=== PATIENT | male | born 1950 | race Caucasian/White ===

== ENCOUNTER → 2016-06-26 | Outpatient (CLI) | payer BC ==
[~2016-06-26] MED LIST: ACET-1256 PO; BND25X PO; GLUCTAB7 PO; VITACAP26 PO
== END | disposition home or self-care (01) ==
LOC: C.LAB 11:40
PROVIDERS: ATTEND Urology
DX: C61 Malignant neoplasm of prostate (principal)

== ENCOUNTER → 2016-09-23 | Outpatient (CLI) | payer BC | END | disposition home or self-care (01) | LOC: C.LAB 11:26 | PROVIDERS: ATTEND Urology | DX: C61 Malignant neoplasm of prostate (principal) ==

== ENCOUNTER → 2017-06-19 | Outpatient (CLI) | payer OTHER | END | disposition home or self-care (01) | LOC: C.PATHSPEC 17:27 | PROVIDERS: ATTEND Urology | DX: C61 Malignant neoplasm of prostate (principal) ==

== ENCOUNTER → 2017-12-25 | Outpatient (CLI) | payer OTHER | END | disposition home or self-care (01) | LOC: C.LAB 18:51 | PROVIDERS: ATTEND Urology | DX: C61 Malignant neoplasm of prostate (principal) ==

== ENCOUNTER 2022-03-29 08:23 | Observation (INO) ==
[2022-03-29] MEDS ORDERED: MoRPHine SULFATE 4 MG/ML 1 ML CARP\\VIAL IV STA ×2 (08:51→09:36)
[2022-03-29] MEDS ORDERED: SODIUM CHLORIDE 0.9% 1000ML 1,000 ML IV STA (08:51)
[2022-03-29] MEDS ORDERED: ONDANSETRON INJ 2 MG/ML 2 ML VIAL IV STA (08:51)
--- NOTE | 2022-03-29 08:56 | Emergency Department Note ---
History of Present Illness General Chief complaint: Abdominal Pain Stated complaint: PAIN IN UPPER MID SECTION BY RIBS Time Seen by Provider: 03/29/22 08:47 History of Present Illness Maximum Pain Intensity: 10 71-year-old male presents to the ED with a chief complaint of pain in the right upper quadrant. He reports it as feeling like a gallbladder attack. He had a sudden onset of his symptoms about an hour prior to arrival. Describes it as sharp pain. Little nausea. Last normal bowel movement was yesterday morning. Denies any vomiting. No fevers. He had a cholecystectomy performed [address] Naidu. Because he was unable to urinate after the surgery, Upton catheter was placed Home Medications Medication Instructions Recorded Confirmed Type antiarthritic combination no.2 900 900 mg PO DAILY 01/05/19 03/22/22 History mg tablet (glucosamine-chondroitin) ascorbic acid (vitamin C) 500 mg 500 mg PO DAILY 01/05/19 03/22/22 History capsule diphenhydramine HCl 25 mg capsule 25 mg PO Q8H PRN Allergy Symptoms 01/05/19 03/22/22 History (Allergy (diphenhydramine)) ibuprofen 200 mg tablet 200 mg PO DIRECTED PRN Pain 03/22/22 03/22/22 History Allergies Allergy/AdvReac Type Severity Reaction Status Date / Time cat dander Allergy Mild watery eyes Verified 03/22/22 00:40 dog dander Allergy Mild watery eyes Verified 03/22/22 00:40 pollen extracts Allergy Unknown ENVIRONMENTAL, Verified 03/22/22 00:40 watery eyes procaine Allergy Unknown FATHER HAD Verified 03/22/22 00:40 ANAPHYLAXIS FROM NOVOCAINE epinephrine AdvReac Mild Shakes Verified 03/22/22 00:40 when given at the dentist ANESTHETIC AdvReac Severe URINARY Uncoded 03/22/22 00:40 RETENTION Past Med/Surg History Medical History Dysfunction of right eustachian tube H/O bronchitis History of asthma as a child>had an inhaler Kidney stone current>not causing problem Prostate cancer currently being monitored Sensorineural hearing loss (SNHL) of left ear with unrestricted hearing of right ear Surgical History H/O colonoscopy H/O rotator cuff surgery RT History of anesthesia reaction urinary retention>required [place] catheter at discharge History of hernia repair inguinal History of tooth extraction Family History Mother Hypertension Stroke Other No family history of adverse response to anesthesia No family history of bleeding disorder Social History Smoking Status: Never smoker Second Hand Exposure: Yes ( A CHILD); Hx Alcohol Use: Yes Alcohol type: hard liquor Alcohol Intake Frequency: 4 or More x per/Week Hx Substance Use: No Preferred Language: Spanish 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 Beliefs That Will Affect Care: None marital status: Current Living Situation: Spouse current occupational status: retired How many Children do You have: 3 Feels Safe at Home: Yes during the past year weight has: remained stable Assistive Devices: Glasses Review of Systems A total of 10 systems reviewed and were otherwise negative Physical Exam Vital Signs Vital Signs - 24 hr 03/29/22 08:28 03/29/22 08:43 03/29/22 09:11 Temperature 36.3 C L Temperature Source Temporal Artery Scan Pulse Rate 61 49 L 52 L Pulse Rate from SpO2 Sensor Pulse Rhythm Regular Regular Respiratory Rate 16 23 Respiratory Effort / Characteristics Non-Labored Respiratory Depth Normal Blood Pressure 158/72 H Blood Pressure Mean 100 Pulse Oximetry 99 98 100 Oxygen Delivery Method Room Air Room Air Room Air Sepsis Recent Fever Within 48 Hours No Sepsis New/Unexplained Change in Mental Status No Sepsis Action Taken by Nursing No Action Required 03/29/22 08:43 03/29/22 08:43 03/29/22 09:00 Temperature Temperature Source Pulse Rate 58 L 53 L Pulse Rate from SpO2 Sensor 58 L 53 L Pulse Rhythm Respiratory Rate 17 19 Respiratory Effort / Characteristics Respiratory Depth Blood Pressure 192/106 H Blood Pressure Mean 134 Pulse Oximetry 99 99 Oxygen Delivery Method Sepsis Recent Fever Within 48 Hours Sepsis New/Unexplained Change in Mental Status Sepsis Action Taken by Nursing 03/29/22 09:01 03/29/22 09:01 03/29/22 09:30 Temperature Temperature Source Pulse Rate 52 L Pulse Rate from SpO2 Sensor 53 L 48 L Pulse Rhythm Respiratory Rate 23 14 Respiratory Effort / Characteristics Respiratory Depth Blood Pressure 166/72 H 164/93 H Blood Pressure Mean 103 116 Pulse Oximetry 100 98 Oxygen Delivery Method Sepsis Recent Fever Within 48 Hours Sepsis New/Unexplained Change in Mental Status Sepsis Action Taken by Nursing CONSTITUTIONAL/VITAL SIGNS: Reviewed / noted above. GENERAL: Non-toxic in appearance. INTEGUMENTARY: Warm, dry, and [place]. HEAD: Normocephalic. EYES: without scleral icterus or trauma. ENT/OROPHARYNX: clear and moist. LYMPHADENOPATHY/NECK: Is supple without lymphadenopathy or meningismus. RESPIRATORY: Clear to auscultation bilaterally. No increased work of breathing. CARDIOVASCULAR: Regular rate and rhythm. GI/ABDOMEN: Soft and tender in the upper abdomen right greater than left. No organomegaly or pulsatile mass. EXTREMITIES: Warm and well perfused. BACK: No CVA tenderness. NEUROLOGICAL: Intact without focal deficits. PSYCHIATRIC: normal affect. MUSCULOSKELETAL: Normally developed with good muscle tone. TRIAGE NURSING DOCUMENTATION REVIEWED. Course Administered Medications Discontinued Medications Sodium Chloride (Nss 1000ml) 1,000 mls @ 999 mls/hr IV .Q1H1M STA Stop: 03/29/22 09:51 Last Admin: 03/29/22 08:57 Dose: 999 mls/hr Documented By: ED Morphine Sulfate (Morphine Sulfate 4 Mg/Ml 1 Ml Carp\Vial) 4 mg IV NOW STA Stop: 03/29/22 08:52 Last Admin: 03/29/22 08:58 Dose: 4 mg Documented By: ED Morphine Sulfate (Morphine Sulfate 4 Mg/Ml 1 Ml Carp\Vial) 4 mg IV NOW STA Stop: 03/29/22 09:37 Last Admin: 03/29/22 09:41 Dose: 4 mg Documented By: ED Ondansetron HCl (Ondansetron Inj 2 Mg/Ml 2 Ml Vial) 4 mg IV NOW STA Stop: 03/29/22 08:52 Last Admin: 03/29/22 08:58 Dose: 4 mg Documented By: ED Medical Decision Making Differential Diagnosis Differential considered: pancreatitis, hepatitis, acute cholecystitis, AAA, UTI, pyelonephritis, kidney stones, appendicitis, diverticulitis, shingles, bowel obstruction, mesenteric ischemia, intussusception,hernia Medical Records Attestation: I reviewed the patient's medical records. Home Medications Current Medication List: was personally reviewed by me Laboratory Data Attestation: I reviewed the patient's lab results. Result diagrams: 03/29/22 08:43 03/29/22 08:43 Lab Results 03/29/22 03/29/2203/29/22 Range/Units 08:43 08:43 09:37 WBC 6.43 (4.8-10.8) K/ul RBC 5.36 (4.63-6.08) M/uL Hgb 17.0 (14.0-18.0) g/dl Hct 48.2 (40.1-51.0) % MCV 89.9 (80.0-100.0) fL MCH 31.7 (25.0-34.0) pg MCHC 35.3 (32.0-36.0) g/dL RDW Std Deviation 38.4 (36.4-46.3) fL RDW Coeff of Arpan 11.8 (11.5-14.5) % Plt Count 239 (130-400) K/uL MPV 9.9 (9.4-12.4) fL Immature Gran % (Auto) 1.7 % Neut % (Auto) 57.0 % Lymph % (Auto) 28.6 % [place] % (Auto) 9.6 % Eos % (Auto) 2.5 % Baso % (Auto) 0.6 % Neut # (Auto) 3.66 (1.4-6.5) K/uL Lymph # (Auto) 1.84 (1.2-3.4) K/uL [place] # (Auto) 0.62 (0.24-0.82) K/uL Eos # (Auto) 0.16 (0-0.50) K/uL Baso # (Auto) 0.04 (0-0.2) K/uL Immature Gran # (Auto) 0.11 H (0.00-0.02) K/uL Sodium 139 (136-145) mmol/L Potassium 3.5 (3.5-5.1) mmol/L Chloride 103 (98-107) mmol/L Carbon Dioxide 25 (21-32) mmol/L Anion Gap 11 (3-11) BUN 25 H (6-23) mg/dl Creatinine 0.99 (0.6-1.4) mg/dl Est Cr Clr Drug Dosing Not Reportable Est GFR ( Amer) 89.1 ml/min Est GFR (Non-Af Amer) 76.8 ml/min BUN/Creatinine Ratio 25.3 H (10-20) Glucose 126 H (70-99(Fasting)) mg/dl Calcium 9.5 (8.5-10.1) mg/dl Total Bilirubin 0.9 (0.2-1.0) mg/dl AST 21 (13-39) U/L ALT 31 (7-52) U/L Alkaline Phosphatase 108 H (34-104) U/L Total Protein 7.2 (6.0-8.3) gm/dl Albumin 4.4 (3.4-5.0) gm/dl Globulin 2.8 (2.5-4.0) gm/dl Albumin/Globulin Ratio 1.6 (0.9-2) Lipase 71 (11-82) U/L Urine Color Yellow Urine Appearance Cloudy A (Clear) Urine pH 8.0 H (4.5-7.5) Ur Specific [place] 1.025 (1.000-1.030) Urine Protein 1+ H (Negative) Urine Glucose (UA) Negative (Negative) Urine Ketones Trace H (Negative) Urine Blood 2+ H (Negative) Urine Nitrite Negative (Negative) Urine Bilirubin Negative (Negative) Urine Urobilinogen Negative (Negative) Ur Leukocyte Esterase 1+ H (Negative) Urine WBC (Auto) 5-10 H (0-5) /hpf Urine RBC (Auto) 5-10 H (0-4) /hpf U Hyaline Cast (Auto) 10-30 H (0-5) /lpf U Epithel Cells (Auto) >30 H (0-5) /lpf Urine Bacteria (Auto) 1+ H (Negative) Ur Renal Epithelial Cell Not Reportable Urine Crystals Not Reportable Imaging Data Radiologist's Impression: Abdomen/Pelvis CT 03/29/22 08:51 CT SCAN OF THE ABDOMEN AND PELVIS WITHOUT IV CONTRAST CLINICAL HISTORY: Right upper quadrant abdominal pain. Recent cholecystectomy. COMPARISON STUDY: Abdominal CT dated 12/01/2018. Abdominal ultrasound dated 12/26/2021. TECHNIQUE: CT scan of the abdomen and pelvis is performed from the lung bases to the proximal femora. Images are reviewed in the axial, sagittal, and coronal planes. IV contrast was not administered for this examination. Note that the examination was performed in significantly suboptimal fashion without oral and IV contrast. A dose lowering technique was utilized adhering to the principles of ALARA. CT DOSE: 333.39 mGy.cm FINDINGS: Lung bases: The heart is mildly enlarged and without pericardial effusion. There are coronary artery calcifications. The lung bases are clear noting bibasilar atelectasis. A small hiatal hernia is noted. Liver: The unenhanced liver is normal in size, contour, and attenuation. There is no intrahepatic biliary ductal dilatation. Gallbladder: The gallbladder is surgically absent noting clips in the gallbladder fossa. There is mild soft tissue infiltration within the gallbladder fossa, likely representing expected postoperative change. No fluid collection is seen on this unenhanced examination. Spleen: Normal in size and attenuation. Pancreas: Unremarkable. Adrenal glands: Unremarkable. Kidneys: The unenhanced kidneys are normal in size and without hydronephrosis. There is a 4 mm nonobstructing calculus in the left lower pole. No right renal calculi are identified and no ureteral stone is seen. There is no evidence of c ontour deforming renal mass lesion. Abdominal vasculature: The abdominal aorta is normal in course and caliber noting scattered foci of atherosclerotic calcification. Bowel: There is no bowel obstruction. Mild to moderate fecal retention is seen throughout the colon. The appendix is well-visualized and normal. Peritoneum: There is no intraperitoneal free air or abdominal ascites. Periumbilical soft tissue infiltration and dermal thickening is likely related to a recent laparoscopy port. Lymphadenopathy: None. Pelvic viscera: The prostate gland is enlarged and heterogeneous noting median lobe hypertrophy. The bladder is partially decompressed around a Upton catheter. The bladder wall appears thickened and trabeculated indicating chronic outlet obstruction. A distal left ureterocele versus bladder diverticulum is unchanged. Skeletal structures: The skeletal structures are osteopenic. There is mild lumbosacral spondylosis. No lytic or blastic lesions are seen. IMPRESSION: 1. Suboptimal examination without oral and IV contrast. 2. Status post cholecystectomy. 3. There is mild infiltration within the gallbladder fossa, likely representing expected postoperative change. No organized fluid collection is seen. 3. Prostatomegaly with evidence of chronic bladder outlet obstruction. 4. Left-sided nephrolithiasis. 5. Additional findings as above. ACT 112: Negative or not required by law. Electronically signed by: Jay Mcgee M.D. 03/29/2022 9:28 AM Chest X-Ray 03/29/22 09:53 SINGLE VIEW CHEST CLINICAL HISTORY: Right upper quadrant abdominal pain. FINDINGS: An AP, portable, upright chest radiograph is compared to study dated 02/11/2013. Correlation is made with abdominal CT performed the same day 2021. The heart is mildly enlarged. There is pulmonary vascular congestion. There is elevation of the right hemidiaphragm and bibasilar atelectasis. No airspace consolidation typical for pneumonia or large pleural effusion is identified. No pneumothorax is seen. The skeletal structures are osteopenic. The bony thorax is grossly intact. Cholecystectomy clips are noted in the right upper quadrant. IMPRESSION: 1. Cardiomegaly with mild pulmonary vascular congestion. 2. No airspace consolidation typical for pneumonia or large pleural effusion is identified ACT 112: Negative or not required by law. Electronically signed by: Jay Mcgee M.D. 03/29/2022 10:36 AM ECG Data Attestation: I personally reviewed and interpreted this ECG as follows: Additional Comments: Twelve-lead EKG: Per my interpretation shows a sinus rhythm at a rate of 58. No ST elevation. No PVCs. Normal QTC. MDM Narrative 71-year-old male presents with right upper quadrant abdominal pain as detailed above. Status postcholecystectomy 8 days ago. His pain was treated with morphine IV which seems to help. He was also given IV fluids and IV Zofran. A CT scan of the abdomen pelvis did not show a clear cause for her symptoms and a chest x-ray was negative for acute disease. His blood work was also relatively benign and unremarkable as was the urine. Concern for retained stone. Attempted to order a HIDA scan but there is no isotope in stock. Surgery service is seeing the patient for inpatient evaluation and MRCP. Impression & Plan Abdominal pain, acute, right upper quadrant Discharge Plan Visit Data Chief Complaint: Abdominal Pain Stated Complaint: PAIN IN UPPER MID SECTION BY RIBS ED Provider: Selvin Loomis Discharge Problem: Abdominal pain, acute, right upper quadrant Patient Disposition: Being Evaluated by Surgeon Forms Stand Alone Forms: [facility] [employer] Prescriptions Prescriptions: No Action diphenhydramine HCl [Allergy (diphenhydramine)] 25 mg capsule 25 mg PO Q8H PRN (Reason: Allergy Symptoms) ascorbic acid (vitamin C) 500 mg capsule 500 mg PO DAILY glucosamine-chondroitin 900 mg tablet 900 mg PO DAILY ibuprofen 200 mg Tablet 200 mg PO DIRECTED PRN (Reason: Pain) Referrals Referrals: Barber Pena DO [Primary Care Provider] -
[2022-03-29 09:05] LABS: Basophils # (auto) 0.04 K/uL (0-0.2); Basophils % (auto) 0.6 %; Eosinophils # (auto) 0.16 K/uL (0-0.50); Eosinophils % (auto) 2.5 %; Hematocrit (blood only) 48.2 % (40.1-51.0); Immature Granulocytes # (auto) 0.11 K/uL (0.00-0.02); Immature Granulocytes % (auto) 1.7 %; Lymphocytes # (auto) 1.84 K/uL (1.2-3.4); Lymphocytes % (auto) 28.6 %; Mean Corpuscular Hemoglobin 31.7 pg (25.0-34.0); Mean Corpuscular Hgb Conc 35.3 g/dL (32.0-36.0); Mean Corpuscular Volume 89.9 fL (80.0-100.0); Mean Platelet Volume 9.9 fL (9.4-12.4); Monocytes # (auto) 0.62 K/uL (0.24-0.82); Monocytes % (auto) 9.6 %; Neutrophils # (auto) 3.66 K/uL (1.4-6.5); Platelet Count 239 K/uL (130-400); RDW Coefficient of Variation 11.8 % (11.5-14.5); RDW Standard Deviation 38.4 fL (36.4-46.3); Red Blood Count 5.36 M/uL (4.63-6.08); White Blood Count 6.43 K/ul (4.8-10.8)
[2022-03-29 09:26] LABS: Alanine Aminotransferase 31 U/L (7-52); Albumin Globulin Ratio 1.6 (0.9-2); Albumin Level 4.4 gm/dl (3.4-5.0); Alkaline Phosphatase 108 U/L (34-104); Anion Gap 11 (3-11); Aspartate Aminotransferase 21 U/L (13-39); BUN Creatinine Ratio 25.3 (10-20); Bilirubin,Total 0.9 mg/dl (0.2-1.0); Blood Urea Nitrogen 25 mg/dl (6-23); Calcium 9.5 mg/dl (8.5-10.1); Carbon Dioxide 25 mmol/L (21-32); Chloride 103 mmol/L (98-107); Est GFR (African American) 89.1 ml/min; Est GFR (Non-African American) 76.8 ml/min; Globulin 2.8 gm/dl (2.5-4.0); Glucose 126 mg/dl (70-99(Fasting)); Lipase 71 U/L (11-82); Potassium 3.5 mmol/L (3.5-5.1); Sodium 139 mmol/L (136-145); Total Protein 7.2 gm/dl (6.0-8.3)
--- NOTE | 2022-03-29 09:29 | CT Scan Report ---
CT SCAN OF THE ABDOMEN AND PELVIS WITHOUT IV CONTRAST CLINICAL HISTORY: Right upper quadrant abdominal pain. Recent cholecystectomy. COMPARISON STUDY: Abdominal CT dated 12/01/2018. Abdominal ultrasound dated 12/26/2021. TECHNIQUE: CT scan of the abdomen and pelvis is performed from the lung bases to the proximal femora. Images are reviewed in the axial, sagittal, and coronal planes. IV contrast was not administered for this examination. Note that the examination was performed in significantly suboptimal fashion withou t oral and IV contrast. A dose lowering technique was utilized adhering to the principles of ALARA. CT DOSE: 333.39 mGy.cm FINDINGS: Lung bases: The heart is mildly enlarged and without pericardial effusion. There are coronary artery calcifications. The lung bases are clear noting bibasilar atelectasis. A small hiatal hernia is noted . Liver: The unenhanced liver is normal in size, contour, and attenuation. There is no intrahepatic lance iary ductal dilatation. Gallbladder: The gallbladder is surgically absent noting clips in the gallbladder fossa. There is mil d soft tissue infiltration within the gallbladder fossa, likely representing expected postoperative c hange. No fluid collection is seen on this unenhanced examination. Spleen: Normal in size and attenuation. Pancreas: Unremarkable. Adrenal glands: Unremarkable. Kidneys: The unenhanced kidneys are normal in size and without hydronephrosis. There is a 4 mm nonobs tructing calculus in the left lower pole. No right renal calculi are identified and no ureteral stone is seen. There is no evidence of contour deforming renal mass lesion. Abdominal vasculature: The abdominal aorta is normal in course and caliber noting scattered foci of a therosclerotic calcification. Bowel: There is no bowel obstruction. Mild to moderate fecal retention is seen throughout the colon. The appendix is well-visualized and normal. Peritoneum: There is no intraperitoneal free air or abdominal ascites. Periumbilical soft tissue infi ltration and dermal thickening is likely related to a recent laparoscopy port. Lymphadenopathy: None. Pelvic viscera: The prostate gland is enlarged and heterogeneous noting median lobe hypertrophy. The bladder is partially decompressed around a Martin catheter. The bladder wall appears thickened and tra beculated indicating chronic outlet obstruction. A distal left ureterocele versus bladder diverticulu m is unchanged. Skeletal structures: The skeletal structures are osteopenic. There is mild lumbosacral spondylosis. N o lytic or blastic lesions are seen. IMPRESSION: 1. Suboptimal examination without oral and IV contrast. 2. Status post cholecystectomy. 3. There is mild infiltration within the gallbladder fossa, likely representing expected postoperativ e change. No organized fluid collection is seen. 3. Prostatomegaly with evidence of chronic bladder outlet obstruction. 4. Left-sided nephrolithiasis. 5. Additional findings as above. ACT 112: Negative or not required by law. Electronically signed by: Jay Mcgee M.D. 03/29/2022 9:28 AM
[2022-03-29 10:01] LABS: Appearance Urine Cloudy (Clear); Bilirubin Urine Negative (Negative); Blood Urine 2+ (Negative); Color Urine Yellow; Epithelial Cell Urine Auto >30 /lpf (0-5); Glucose Urine UA Negative (Negative); Ketones Urine Trace (Negative); Leukocyte Esterase Urine 1+ (Negative); Nitrite Urine Negative (Negative); Specific Gravity Urine 1.025 (1.000-1.030); Urobilinogen Urine Negative (Negative)
[2022-03-29 10:06] LABS: Protein Urine 1+ (Negative)
[2022-03-29 10:14] LABS: Bacteria Urine Automated 1+ (Negative)
--- NOTE | 2022-03-29 10:37 | XRay Report ---
SINGLE VIEW CHEST CLINICAL HISTORY: Right upper quadrant abdominal pain. FINDINGS: An AP, portable, upright chest radiograph is compared to study dated 02/11/2013. Correlation is made with abdominal CT performed the same day 03/29/2022. The heart is mildly enlarged. There is pulmonary vascular congestion. There is elevation of the right hemidiaphragm and bibasilar atelectasi s. No airspace consolidation typical for pneumonia or large pleural effusion is identified. No pneumo thorax is seen. The skeletal structures are osteopenic. The bony thorax is grossly intact. Cholecyste ctomy clips are noted in the right upper quadrant. IMPRESSION: 1. Cardiomegaly with mild pulmonary vascular congestion. 2. No airspace consolidation typical for pneumonia or large pleural effusion is identified ACT 112: Negative or not required by law. Electronically signed by: Jay Mcgee M.D. 03/29/2022 10:36 AM
--- NOTE | 2022-03-29 12:46 | History & Physical Report ---
Date of Service March 29, 2022 Assessment & Plan (1) Abdominal pain, acute, right upper quadrant: Plan: This is a 71yM with a PMH of prostate ca who presents to the [facility] ED on 03/29/22 with acute onset abdominal pain.He is recently s/p elective lap kirti on 03/21/[address] Naidu. This AM he developed acute onset upper abdominal pain he states was off the charts and similar to previous gallbladder attacks. In the ER he underwent a CT a/p that revealed expected postoperative change in the gallbladder fossa without any organized fluid collection. Labs show normal WBC 6.4, Tb: 0.9, AST: 21, ALT: 31, AlkP: 108. Patient is afebrile and HR's 50s, and is hypertensive. On exam his abdomen is soft with discomfort to palpation in the RUQ. He also reports ongoing nausea. Will admit the patient for pain control and monitoring. Recommended a HIDA for further evaluation but we are out of isotope until next week. Therefore we will order an MRCP which sounds like may be performed this evening. Will keep NPO with sips/chils, anti-emetics, and pain control. History of Present Illness Primary Care Provider: Barber Pena DO This is a 71yM with a PMH of prostate ca who presents to the [facility] ED on 03/29/22 with acute onset abdominal pain. Of significance the patient recently underwent an elective lap kirti on 03/21/[address] Naidu. He had been doing well since post op, but did return to the OR for urinary retention and upton catheter was placed in the ER on POD#0 and was otherwise suppose to upton up with Urology today for a void trial. Patient states his pain felt similar to his previous gallbladder attacks. The pain came on acutely this AM and was associated with nausea. Due to the severity of the pain, mostly located in the RUQ he came into the ER for further evaluation. In the ER he underwent a CT a/p that revealed expected postoperative change in the gallbladder fossa without any organized fluid collection. The patient denies any fevers/chills, vomiting, or recent change in bowel habits. Allergies Allergy/AdvReac Type Severity Reaction Status Date / Time cat dander Allergy Mild watery eyes Verified 03/22/22 00:40 dog dander Allergy Mild watery eyes Verified 03/22/22 00:40 pollen extracts Allergy Unknown ENVIRONMENTAL, Verified 03/22/22 00:40 watery eyes procaine Allergy Unknown FATHER HAD Verified 03/22/22 00:40 ANAPHYLAXIS FROM NOVOCAINE epinephrine AdvReac Mild Shakes Verified 03/22/22 00:40 when given at the dentist ANESTHETIC AdvReac Severe URINARY Uncoded 03/22/22 00:40 RETENTION Home Medications Medication Instructions Recorded Confirmed Type antiarthritic combination no.2 900 900 mg PO QAM 01/05/19 03/29/22 History mg tablet (glucosamine-chondroitin) ascorbic acid (vitamin C) 500 mg 500 mg PO BID 01/05/19 03/29/22 History capsule diphenhydramine HCl 25 mg capsule 25 mg PO PRN Allergy Symptoms 01/05/19 03/22/22 History (Allergy (diphenhydramine)) ibuprofen 200 mg tablet 200 mg PO DAILY PRN Pain 03/22/22 03/29/22 History tamsulosin 0.4 mg capsule (Flomax) 0.4 mg PO QPM RETENTION 03/29/22 03/29/22 History Past Med/Surg History Medical History Dysfunction of right eustachian tube H/O bronchitis History of asthma as a child>had an inhaler Kidney stone current>not causing problem Prostate cancer currently being monitored Sensorineural hearing loss (SNHL) of left ear with unrestricted hearing of right ear Surgical History H/O colonoscopy H/O rotator cuff surgery RT History of anesthesia reaction urinary retention>required upton catheter at discharge History of hernia repair inguinal History of tooth extraction Family History Mother Hypertension Stroke Other No family history of adverse response to anesthesia No family history of bleeding disorder Social History Smoking Status: Never smoker Second Hand Exposure: Yes ( A CHILD); Hx Alcohol Use: Yes Alcohol type: hard liquor Alcohol Intake Frequency: 4 or More x per/Week Hx Substance Use: No Preferred Language: Upper 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 Beliefs That Will Affect Care: None marital status: Current Living Situation: Spouse current occupational status: retired How many Children do You have: 3 Feels Safe at Home: Yes Safety Concerns: Feels Safe At This Time during the past year weight has: remained stable Assistive Devices: Glasses Review of Systems Constitutional: no fever and no chills Respiratory: no dyspnea Gastrointestinal: + abdominal pain (RUQ, across upper abdomen, into the R shoulder) and + nausea; no vomiting Physical Exam Physical Exam: awake/alert, no acute distress Respiratory: normal respiratory effort Gastrointestinal (Abdomen): Inspection/Auscultation: + abdominal surgical incision (c/d/i, some ecchymosis in lower abdomen); abdomen not distended Percussion/Palpation: + abdomen tender (ttp in the RUQ) and abdomen soft Results & Data Results & Data ([facility]) Vital Signs (Past 12 Hours) Vital Signs Temp Pulse Resp BP Pulse Ox O2 Del Method 03/29/22 09:30 14 164/93 H 98 03/29/22 09:01 52 L 23 100 03/29/22 09:01 166/72 H 03/29/22 09:00 53 L 19 99 03/29/22 08:43 58 L 17 99 03/29/22 08:43 192/106 H 03/29/22 09:11 52 L 23 100 Room Air 03/29/22 08:43 49 L 98 Room Air 03/29/22 08:28 36.3 C L 61 16 158/72 H 99 Room Air Diagnostic Findings CT SCAN OF THE ABDOMEN AND PELVIS WITHOUT IV CONTRAST CLINICAL HISTORY: Right upper quadrant abdominal pain. Recent cholecystectomy. COMPARISON STUDY: Abdominal CT dated 12/01/2018. Abdominal ultrasound dated 12/26/2021. TECHNIQUE: CT scan of the abdomen and pelvis is performed from the lung bases to the proximal femora. Images are reviewed in the axial, sagittal, and coronal planes. IV contrast was not administered for this examination. Note that the examination was performed in significantly suboptimal fashion without oral and IV contrast. A dose lowering technique was utilized adhering to the principles of ALARA. CT DOSE: 333.39 mGy.cm FINDINGS: Lung bases: The heart is mildly enlarged and without pericardial effusion. There are coronary artery calcifications. The lung bases are clear noting bibasilar atelectasis. A small hiatal hernia is noted. Liver: The unenhanced liver is normal in size, contour, and attenuation. There is no intrahepatic biliary ductal dilatation. Gallbladder: The gallbladder is surgically absent noting clips in the gallbladder fossa. There is mild soft tissue infiltration within the gallbladder fossa, likely representing expected postoperative change. No fluid collection is seen on this unenhanced examination. Spleen: Normal in size and attenuation. Pancreas: Unremarkable. Adrenal glands: Unremarkable. Kidneys: The unenhanced kidneys are normal in size and without hydronephrosis. There is a 4 mm nonobstructing calculus in the left lower pole. No right renal calculi are identified and no ureteral stone is seen. There is no evidence of contour deforming renal mass lesion. Abdominal vasculature: The abdominal aorta is normal in course and caliber noting scattered foci of atherosclerotic calcification. Bowel: There is no bowel obstruction. Mild to moderate fecal retention is seen throughout the colon. The appendix is well-visualized and normal. Peritoneum: There is no intraperitoneal free air or abdominal ascites. Periu mbilical soft tissue infiltration and dermal thickening is likely related to a recent laparoscopy port. Lymphadenopathy: None. Pelvic viscera: The prostate gland is enlarged and heterogeneous noting median lobe hypertrophy. The bladder is partially decompressed around a Upton catheter. The bladder wall appears thickened and trabeculated indicating chronic outlet obstruction. A distal left ureterocele versus bladder diverticulum is unchanged. Skeletal structures: The skeletal structures are osteopenic. There is mild lumbosacral spondylosis. No lytic or blastic lesions are seen. IMPRESSION: 1. Suboptimal examination without oral and IV contrast. 2. Status post cholecystectomy. 3. There is mild infiltration within the gallbladder fossa, likely representing expected postoperative change. No organized fluid collection is seen. 3. Prostatomegaly with evidence of chronic bladder outlet obstruction. 4. Left-sided nephrolithiasis. 5. Additional findings as above ACT 112: Negative or not required by law. Electronically signed by: Jay Mcgee M.D. 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 days postop laparoscopic cholecystectomy patient was recovering well without any issue last evening acute onset of pain right upper quadrant going to the back and right shoulder with associated nausea At this time with the patient's supine position and the knees flexed does have some guarding her right upper quadrant the rest of the abdomen is negative Possible etiologies of the acute onset of pain primarily would be a bile leak had a CT scan without any IV contrast did not definitively see any leak there was some changes in the gallbladder fossa we wanted to obtain a HIDA scan but apparently this not possible at this time since no availability of radioisotope We want to get an MRCP and apparently at this time the machine is not working Discussed with the patient the possible etiology of the acute onset of pain and primary bile leak must be ruled out All question answered 20:30 PM MRCP was recently completed I spoke with radiologist Dr. Hurtado and is positive for biliary leak I discussed the situation with the patient still has moderate amount of discomfort but stabilized he would like to have something to drink Given him the results of the MRCP I told him we need recommendations to have safety lead see him tomorrow ERCP I spoke with Dr. Shepherd this evening and he will be in touch with [facility] gastroenterology with be available to perform the ERCP Will start on full liquids tonight of choice at his request keep him n.p.o. after midnight PG Care Time/CCT Total # of Minutes Spent Total Time Spent with Patient: Total time spent is greater than 50% in coordination of care (as documented) at patient's floor/unit and/or counseling patient: Coding Level of Care Code None Diagnoses Abdominal pain, acute, right upper quadrant R10.11
[2022-03-29] MEDS ORDERED: ACETAMINOPHEN 325 MG TAB PO PRN (13:31)
[2022-03-29] MEDS ORDERED: MoRPHine SULFATE 2 MG/ML CARP IV PRN (13:31)
[2022-03-29] MEDS ORDERED: oxyCODONE HCL IR 5 MG TAB (IMMEDIATE RELEASE) PO PRN (13:31)
[2022-03-29] MEDS: SODIUM CHLORIDE 0.9% 1000ML 1,000 ML IV SCH ×2 (13:41→23:48)
[2022-03-29] MEDS: MoRPHine SULFATE 4 MG/ML 1 ML CARP\\VIAL IV PRN ×3 (13:42→23:46)
--- NOTE | 2022-03-29 15:31 | Electrocardiogram Report ---
Test Reason : Blood Pressure : / mmHG Vent. Rate : 058 BPM Atrial Rate : 058 BPM P-R Int : 176 ms QRS Dur : 090 ms QT Int : 430 ms P-R-T Axes : 064 075 049 degrees QTc Int : 422 ms Sinus bradycardia with Premature atrial complexes Otherwise normal ECG When compared with ECG of 13-MAR-2022 14:04, Premature atrial complexes are now Present Confirmed by Mikey Whaley ([id number]) on 03/29/2022 3:31:32 PM Referred By: REFERRED SELF Confirmed By:Mikey Whaley
[2022-03-29] MEDS ORDERED: hydrALAZINE HCL 20 MG/ML VIAL IV STA (17:36)
--- NOTE | 2022-03-29 20:07 | Magnetic Resonance Report ---
MR MRCP CLINICAL HISTORY: RUQ pain, lap kirti 8 days ago TECHNIQUE: Multiplanar multisequence MR images of the abdomen were obtained, as per MRCP protocol. . COMPARISON: Comparison is made to CT abdomen pelvis 03/29/2022 FINDINGS: Lower chest: Bibasilar atelectasis versus scarring is seen. Liver: Unremarkable. No focal lesions are seen. Gallbladder and biliary tree: Patient is status post cholecystectomy. Intra or extrahepatic bile duct s are normal in appearance. No focal irregularity is seen. Pancreas: Unremarkable, no focal lesions. Spleen: Unremarkable. Adrenals: Unremarkable. Kidneys and ureters: Perinephric stranding is noted bilaterally. Bowel: Unremarkable. Lymph nodes Retroperitoneal: Unremarkable. Mesenteric: Unremarkable. Peritoneum: There is free fluid most prominently in the right upper quadrant surrounding the liver. N o focal fluid collections are seen. Vessels: Unremarkable. Abdominal wall: Unremarkable. Bones: Unremarkable. IMPRESSION: Interval development of a small amount of free fluid surrounding the kidney since the CT abdomen pelv is performed this morning. In the setting of recent cholecystectomy, findings are worrisome for a lance e duct injury with resulting leak. No focal defect of the biliary duct is seen. ACT 112: Negative or not required by law. Electronically signed by: Joe Rodriguez M.D. 03/29/2022 8:05 PM
[2022-03-29] MEDS: oxyCODONE HCL IR 5 MG TAB (IMMEDIATE RELEASE) PO PRN (20:53)
[2022-03-29] MEDS: TAMSULOSIN HCL 0.4 MG CAP PO SCH (20:53)
[2022-03-29] MEDS: hydrALAZINE HCL 20 MG/ML VIAL IV PRN ×2 (21:59→22:03)
[2022-03-30] MEDS: oxyCODONE HCL IR 5 MG TAB (IMMEDIATE RELEASE) PO PRN (01:35)
[2022-03-30] MEDS: MoRPHine SULFATE 4 MG/ML 1 ML CARP\\VIAL IV PRN ×3 (03:03→14:09)
[2022-03-30 06:41] LABS: Basophils # (auto) 0.02 K/uL (0-0.2); Basophils % (auto) 0.1 %; Hematocrit (blood only) 45.5 % (40.1-51.0); Hemoglobin 15.5 g/dl (14.0-18.0); Immature Granulocytes # (auto) 0.07 K/uL (0.00-0.02); Immature Granulocytes % (auto) 0.5 %; Lymphocytes # (auto) 0.47 K/uL (1.2-3.4); Lymphocytes % (auto) 3.2 %; Mean Corpuscular Hemoglobin 31.4 pg (25.0-34.0); Mean Corpuscular Hgb Conc 34.1 g/dL (32.0-36.0); Mean Corpuscular Volume 92.1 fL (80.0-100.0); Mean Platelet Volume 10.3 fL (9.4-12.4); Monocytes # (auto) 1.31 K/uL (0.24-0.82); Neutrophils # (auto) 12.75 K/uL (1.4-6.5); Neutrophils % (auto) 87.2 %; Platelet Count 203 K/uL (130-400); RDW Coefficient of Variation 11.9 % (11.5-14.5); RDW Standard Deviation 40.4 fL (36.4-46.3); Red Blood Count 4.94 M/uL (4.63-6.08); White Blood Count 14.62 K/ul (4.8-10.8)
[2022-03-30 06:52] LABS: Albumin Level 3.9 gm/dl (3.4-5.0); Bilirubin Direct 0.4 mg/dl (0-0.2); Bilirubin,Total 2.1 mg/dl (0.2-1.0); Calcium 8.8 mg/dl (8.5-10.1); Creatinine Clr Calc Pharmacy 74.6 ml/min; Est GFR (African American) 99.9 ml/min; Est GFR (Non-African American) 86.2 ml/min; Potassium 4.4 mmol/L (3.5-5.1); Total Protein 6.6 gm/dl (6.0-8.3)
--- NOTE | 2022-03-30 07:12 | Anesthesiology Consultation ---
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 Surgery Operation Date: 03/30/22 12:00 Proposed Procedures p Endoscopic Retrograde Cholangiopancreato - Alexander Kimball MD Height/Weight Height: 5 ft 6 in Weight: 77 kg Allergies Allergy/AdvReac Type Severity Reaction Status Date / Time cat dander Allergy Mild watery eyes Verified 03/22/22 00:40 dog dander Allergy Mild watery eyes Verified 03/22/22 00:40 pollen extracts Allergy Unknown ENVIRONMENTAL, Verified 03/22/22 00:40 watery eyes procaine Allergy Unknown FATHER HAD Verified 03/22/22 00:40 ANAPHYLAXIS FROM NOVOCAINE epinephrine AdvReac Mild Shakes Verified 03/22/22 00:40 when given at the dentist ANESTHETIC AdvReac Severe URINARY Uncoded 03/22/22 00:40 RETENTION Medications Home Medications Medication Instructions Recorded Confirmed Last Taken antiarthritic combination no.2 900 900 mg PO QAM 01/05/19 03/29/22 03/28/22 mg tablet (glucosamine-chondroitin) 0900 ascorbic acid (vitamin C) 500 mg 500 mg PO BID 01/05/19 03/29/22 03/28/22 21:00 capsule diphenhydramine HCl 25 mg capsule 25 mg PO PRN Allergy Symptoms 01/05/19 1 05/22/21 Unknown (Allergy (diphenhydramine)) ibuprofen 200 mg tablet 200 mg PO DAILY PRN Pain 03/22/22 03/29/22 03/29/22 07:00 200 tamsulosin 0.4 mg capsule (Flomax) 0.4 mg PO QPM RETENTION 03/29/22 03/29/22 03/28/22 18:00 0.4 Active Medications Generic Name Dose Route Start Last Admin Trade Name Freq PRN Reason Stop Dose Admin Hydralazine HCl 10 mg 03/29/22 17:41 03/29/22 22:03 Hydralazine Hcl 20 Mg/Ml Vial IV 04/28/22 17:44 10 mg Q8H PRN Administration HTN, SBP >170 Sodium Chloride 1,000 mls @ 125 mls/hr 03/29/22 13:31 03/29/22 23:48 Nss 1000ml IV 04/28/22 13:30 125 mls/hr .Q8H YOLI Administration Morphine Sulfate 4 mg 03/29/22 13:31 03/30/22 06:11 Morphine Sulfate 4 Mg/Ml 1 Ml Carp\Vial IV 04/12/22 13:30 4 mg Q3H PRN Administration Pain (6,7,8,9,10) Oxycodone HCl 5 mg 03/29/22 13:31 03/30/22 01:35 Oxycodone Hcl Ir 5 Mg Tab (Immediate Release) PO 04/12/22 13:30 5 mg Q4H PRN Administration MODERATE Pain (4,5,6) & Pre PT Tamsulosin HCl 0.4 mg 03/29/22 21:00 03/29/22 20:53 Tamsulosin Hcl 0.4 Mg Cap PO 04/28/22 20:59 0.4 mg HS YOLI Administration Past Medical History Medical History Dysfunction of right eustachian tube H/O bronchitis History of asthma as a child>had an inhaler Kidney stone current>not causing problem Prostate cancer currently being monitored Sensorineural hearing loss (SNHL) of left ear with unrestricted hearing of right ear Past Family History Family History Mother Hypertension Stroke Other No family history of adverse response to anesthesia No family history of bleeding disorder Past Surgical History Surgical History H/O colonoscopy H/O rotator cuff surgery RT History of anesthesia reaction urinary retention>required upton catheter at discharge History of hernia repair inguinal History of tooth extraction Social History Smoking Status: Never smoker Hx Alcohol Use: Yes Alcohol type: hard liquor alcohol intake frequency: 0-2 drinks per day Hx Substance Use: No substance use type: does not use Physical Exam Vital Signs Last Vital Signs Temp 98.2 F 03/29/22 21:38 Pulse 64 03/29/22 21:38 Resp 16 03/29/22 21:38 BP 187/80 H 03/29/22 21:38 Pulse Ox 93 03/29/22 21:38 O2 Del Method 03/29/22 21:38 Testing Laboratory Results 03/30/22 05:22 03/30/22 05:22 Urine Color Yellow 03/29/22 09:37 Urine Appearance Cloudy (Clear) A 03/29/22 09:37 Urine pH 8.0 (4.5-7.5) H 03/29/22 09:37 Ur Specific Vici 1.025 (1.000-1.030) 03/29/22 09:37 Urine Protein 1+ (Negative) H 03/29/22 09:37 Urine Glucose (UA) Negative (Negative) 03/29/22 09:37 Urine Ketones Trace (Negative) H 03/29/22 09:37 Urine Nitrite Negative (Negative) 03/29/22 09:37 Ur Leukocyte Esterase 1+ (Negative) H 03/29/22 09:37 Urine WBC (Auto) 5-10 /hpf (0-5) H 03/29/22 09:37 Urine RBC (Auto) 5-10 /hpf (0-4) H 03/29/22 09:37 U Hyaline Cast (Auto) 10-30 /lpf (0-5) H 03/29/22 09:37 U Epithel Cells (Auto) >30 /lpf (0-5) H 03/29/22 09:37 Urine Bacteria (Auto) 1+ (Negative) H 03/29/22 09:37 Electrocardiogram Date: 03/29/22 Sinus bradycardia with Premature atrial complexes, rate 58 bpm Otherwise normal ECG When compared with ECG of 13-MAR-2022 14:04, Premature atrial complexes are now Present Confirmed by Mikey Whaley ([id number]) on 03/29/2022 3:31:32 PM Chest X-Ray Date: 03/29/22 IMPRESSION: 1. Cardiomegaly with mild pulmonary vascular congestion. 2. No airspace consolidation typical for pneumonia or large pleural effusion is identified
[2022-03-30] MEDS ORDERED: PIPERACILLIN/TAZOBACTAM 3.375 GM in DEXTROSE 5% 100 ML IV ONE (07:30)
[2022-03-30] MEDS: ONDANSETRON INJ 2 MG/ML 2 ML VIAL IV PRN ×2 (07:51→14:11)
[2022-03-30] MEDS: SODIUM CHLORIDE 0.9% 1000ML 1,000 ML IV SCH ×2 (08:17→18:11)
--- NOTE | 2022-03-30 09:59 | Surgery Progress Note ---
Date of Service March 30, 2022 Assessment & Plan (1) Abdominal pain, acute, right upper quadrant: Plan: Pt is s/p lap cholecystectomy on 03/21, here with acute onset RUQ that started yesterday AM MRCP obtained which revealed findings concerning for bile leak Today's labs show elevation in WBC to 14 and Tb: 2.1 GI has been consulted and planning on performing ERCP today Started on IV abx Pt seen/examined with Dr. Vivas Admission and Anticipated Discharge Date Admission Date: March 29, 2022 Supervising Physician Co-Signing Physician Notes elevated wbc will start broad spectrum antibiotics for ERCP later this am Subjective Pt states his pain finally is somewhat under control this AM. Otherwise feeling okay. Physical Exam Physical Exam: awake/alert, no distress Gastrointestinal (Abdomen): Inspection/Auscultation: + abdominal surgical incision (c/d/i); abdomen not distended Percussion/Palpation: + abdomen tender (ttp in RUQ) and abdomen soft Results & Data ([facility]) Vital Signs (Past 12 Hours) Vital Signs Temp Pulse Resp BP Pulse Ox O2 Del Method 03/30/22 07:30 37.4 C 67 20 149/75 H 90 Room Air PG Care Time/CCT Total # of Minutes Spent Total Time Spent with Patient: Total time spent is greater than 50% in coordination of care (as documented) at patient's floor/unit and/or counseling patient: Coding Level of Care Code 98370 Subseq Hosp Care Lvl 3 Diagnoses Abdominal pain, acute, right upper quadrant R10.11
[2022-03-30] MEDS ORDERED: ONDANSETRON INJ 2 MG/ML 2 ML VIAL ONE (11:21)
[2022-03-30] MEDS ORDERED: PROPOFOL IV EMULSION 10 MG/ML 20 ML VIAL IV ONE (11:21)
[2022-03-30] MEDS ORDERED: DEXAMETHASONE SOD INJ 4 MG/ML VIAL ONE (11:21)
[2022-03-30] MEDS ORDERED: fentaNYL citrate 100 MCG/2 ML VIAL ONE ×2 (11:21→11:37)
[2022-03-30] MEDS ORDERED: LIDOCAINE 2% MPF LOCAL 5 ML VIAL INFIL ONE (11:21)
[2022-03-30] MEDS ORDERED: ROCURONIUM BROMIDE 10 MG/ML 5 ML VIAL IV ONE (11:21)
--- NOTE | 2022-03-30 11:26 | Gastrointestinal Consultation ---
Date of Consultation March 30, 2022 Assessment & Plan (1) Abdominal pain, acute, right upper quadrant: Suspect post cholecystectomy bile leak. plan for ERCP Patient was explained in detail regarding risks, benefits, limitations and alternatives of the above endoscopic procedure. Risks of intravenous sedation used for procedure were also explained. Risks include, but not limited to perforation, bleeding, infection, pancreatitis, respiratory distress, cardiac arrest and . Patient is also aware about the possibility of missed lesion. Patient's questions were answered. The patient verbalized understanding the information and agreed to undergo the procedure. History of Present Illness Reason for Consultation: Suspected bile leak post cholecystectomy Attending Physician: Travis Vivas MD, [facility] History of Present Illness 71 years old male patient s/p Lap kirti 03/26 for symptomatic gallstones presented with abdominal pain, CT scan and MRI suspect bile leak based on fluid collection in the GB fossa. LFTs with elevated bilirubin. No fever or chills. Allergies Allergy/AdvReac Type Severity Reaction Status Date / Time cat dander Allergy Mild watery eyes Verified 03/22/22 00:40 dog dander Allergy Mild watery eyes Verified 03/22/22 00:40 pollen extracts Allergy Unknown ENVIRONMENTAL, Verified 03/22/22 00:40 watery eyes procaine Allergy Unknown FATHER HAD Verified 03/22/22 00:40 ANAPHYLAXIS FROM NOVOCAINE epinephrine AdvReac Mild Shakes Verified 03/22/22 00:40 when given at the dentist ANESTHETIC AdvReac Severe URINARY Uncoded 03/22/22 00:40 RETENTION Home Medications Medication Instructions Recorded Confirmed Type antiarthritic combination no.2 900 900 mg PO QAM 01/05/19 03/29/22 History mg tablet (glucosamine-chondroitin) ascorbic acid (vitamin C) 500 mg 500 mg PO BID 01/05/19 03/29/22 History capsule diphenhydramine HCl 25 mg capsule 25 mg PO PRN Allergy Symptoms 01/05/19 03/22/22 History (Allergy (diphenhydramine)) ibuprofen 200 mg tablet 200 mg PO DAILY PRN Pain 03/22/22 03/29/22 History tamsulosin 0.4 mg capsule (Flomax) 0.4 mg PO QPM RETENTION 03/29/22 03/29/22 History Patient History Medical History Dysfunction of right eustachian tube H/O bronchitis History of asthma as a child>had an inhaler Kidney stone current>not causing problem Prostate cancer currently being monitored Sensorineural hearing loss (SNHL) of left ear with unrestricted hearing of right ear Surgical History H/O colonoscopy H/O rotator cuff surgery RT History of anesthesia reaction urinary retention>required upton catheter at discharge History of hernia repair inguinal History of tooth extraction Family History Mother Hypertension Stroke Other No family history of adverse response to anesthesia No family history of bleeding disorder Social History Smoking Status: Never smoker Second Hand Exposure: Yes ( A CHILD); Hx Alcohol Use: Yes Alcohol type: hard liquor Alcohol Intake Frequency: 4 or More x per/Week Hx Substance Use: No Preferred Language: Occitan Automatic Edger Required: No Beliefs That Will Affect Care: None marital status: Current Living Situation: Spouse current occupational status: retired How many Children do You have: 3 Feels Safe at Home: Yes Safety Concerns: Feels Safe At This Time during the past year weight has: remained stable Assistive Devices: Glasses Review of Systems Constitutional: no fever, no chills, no fatigue and no weight loss Eyes: no eye pain and no worsening vision Ear, Nose, Mouth, Throat: no tinnitus, no dizziness, no nasal discharge and no epistaxis Respiratory: no cough, no dyspnea, no dyspnea on exertion and no wheezing Cardiovascular: no chest pain, no orthopnea, no palpitations and no edema Gastrointestinal: as per Subjective / HPI Musculoskeletal: no stiffness and no myalgia Neurologic: no localized weakness, no paralysis, no tremor(s) and no headache(s) Endocrine: no polydipsia and no polyuria Hematologic / Lymphatic: no easy bleeding and no night sweats Physical Exam Constitutional: + well hydrated, cooperative and comfortable Eyes: PERRL, conjunctivae normal, anicteric sclerae ENMT: external ear and nose normal, oropharynx normal Neck: normal visual inspection and trachea midline Respiratory: normal respiratory effort, lungs clear to auscultation Auscultation: no wheezes Cardiovascular: RRR, no murmur, no edema Gastrointestinal (Abdomen): normal bowel sounds, soft, nontender, no hepatosplenomegaly Musculoskeletal: no cyanosis or clubbing, extremities motor strength 5/5 Skin: no rashes, warm and dry Neurologic: awake; no focal motor deficits Motor/Sensory: no tremor Results & Data ([facility]) Vital Signs (Past 12 Hours) Vital Signs Temp Pulse Resp BP Pulse Ox O2 Del Method 03/30/22 07:30 37.4 C 67 20 149/75 H 90 Room Air Laboratory Results Laboratory Results - last 24 hr 03/30/22 03/30/22 05:22 05:22 WBC 14.62 H RBC 4.94 Hgb 15.5 Hct 45.5 MCV 92.1 MCH 31.4 MCHC 34.1 RDW Std Deviation 40.4 RDW Coeff of Arpan 11.9 Plt Count 203 MPV 10.3 Immature Gran % (Auto) 0.5 Neut % (Auto) 87.2 Lymph % (Auto) 3.2 Kingfisher % (Auto) 9.0 Eos % (Auto) 0.0 Baso % (Auto) 0.1 Neut # (Auto) 12.75 H Lymph # (Auto) 0.47 L Kingfisher # (Auto) 1.31 H Eos # (Auto) 0.00 Baso # (Auto) 0.02 Immature Gran # (Auto) 0.07 H Sodium 136 Potassium 4.4 D Chloride 104 Carbon Dioxide 26 Anion Gap 6 BUN 19 Creatinine 0.90 Est Cr Clr Drug Dosing 74.6 Est GFR ( Amer) 99.9 Est GFR (Non-Af Amer) 86.2 Fasting Glucose 128 H Calcium 8.8 Total Bilirubin 2.1 H D Direct Bilirubin 0.4 H AST 19 ALT 25 Alkaline Phosphatase 107 H Total Protein 6.6 Albumin 3.9
[2022-03-30] MEDS ORDERED: SUCCINYLCHOLINE CHLORIDE 20 MG/ML 10 ML VIAL IV ONE (11:37)
[2022-03-30] MEDS ORDERED: ONDANSETRON INJ 2 MG/ML 2 ML VIAL IV PRN (11:40)
[2022-03-30] MEDS ORDERED: ATROPINE SULFATE 0.1 MG/ML 10ML SYR IV PRN (11:40)
[2022-03-30] MEDS ORDERED: fentaNYL citrate 100 MCG/2 ML VIAL IV PRN (11:40)
[2022-03-30] MEDS ORDERED: ePHEDrine sulfate 50 MG/ML AMP IV PRN (11:40)
[2022-03-30] MEDS ORDERED: INDOMETHACIN 50 MG SUPP PR ONE (11:45)
--- NOTE | 2022-03-30 12:14 | Operative Report ---
Post Operative Report Pre & Post Diagnosis Operation Date: 03/30/22 12:00 Pre-Op Diagnosis: Bile leak Post-Op Diagnosis: Bile leak I identified the patient and participated in the time-out.: Yes Procedure Operation Date: 03/30/22 12:00 Actual Procedures p Endoscopic Retrograde Cholangiopancreatogram(Not Applicable) - Alexander Kimball MD Surgeon Alexander Kimball MD Assembler Carbon Brushes None Estimated Blood Loss 0 Findings See Below (Bile leak from duct of Lushka) Specimens None Description of Procedure ERCP I attest to the content of the Intraoperative Record and any orders documented therein. Any exceptions are noted below.
[2022-03-30] MEDS ORDERED: ALBUTEROL HFA INHALER 8.5 GM INH ONE (12:17)
--- NOTE | 2022-03-30 12:30 | GI REPORT ---
Patient Name: Manolo Clements Procedure Date: 03/30/2022 11:26 AM Date of : 1950 Admit Type: Inpatient Age: 71 Gender: Male Attending MD: Alexander Kimball MD Procedure: ERCP Providers: Alexander Kimball MD Referring MD: Travis Vivas Indications: Treatment of bile leak Medicines: General Anesthesia Complications: No immediate complications. Estimated Blood Loss: Estimated blood loss: none. Procedure: Pre-Anesthesia Assessment: - Prior to the procedure, a History and Physical was performed, and patient medications, allergies and sensitivities were reviewed. The patient's tolerance of previous anesthesia was reviewed. - The risks and benefits of the procedure and the sedation options and risks were discussed with the patient. All questions were answered and informed consent was obtained. - Patient identification and proposed procedure were verified prior to the procedure by the physician and the nurse. The procedure was verified in the procedure room. - Pre-procedure physical examination revealed no contraindications to sedation. After obtaining informed consent, the scope was passed under direct vision. Throughout the procedure, the patient's blood pressure, pulse, and oxygen saturations were monitored continuously. The Duodenoscope was introduced through the mouth, and advanced to the duodenum and used to inject contrast into the bile duct. The ERCP was accomplished without difficulty. The patient tolerated the procedure well. Findings: A chief bank examiner film of the abdomen was obtained. Surgical clips, consistent with a previous cholecystectomy, were seen in the area of the right upper quadrant of the abdomen. The esophagus was successfully intubated under direct vision. The scope was advanced to a normal major papilla in the descending duodenum without detailed examination of the pharynx, larynx and associated structures, and upper GI tract. The upper GI tract was grossly normal. Gastritis and retained fluids seen with pylorospasm. A 0.025 inch x 270 cm angled Visiglide wire was passed into the biliary tree. The short-nosed traction sphincterotome was passed over the guidewire and the bile duct was then deeply cannulated. Contrast was injected. I personally interpreted the bile duct images. Ductal flow of contrast was adequate. Image quality was adequate. Contrast extended to the main bile duct. Opacification of the entire biliary tree except for the gallbladder was successful. The maximum diameter of the ducts was 7 mm. Extravasation of contrast originating from the right upper quadrant of the abdomen was observed from the duct of Luschka. The biliary orifice was stenotic. This appeared benign. Biliary sphincterotomy was made with a monofilament traction (standard) sphincterotome using ERBE electrocautery. There was no post-sphincterotomy bleeding. The biliary tree was swept with an 11.5 mm balloon starting at the bifurcation. Nothing was found. One 10 Fr by 9 cm plastic biliary stent with a single external flap and a single internal flap was placed into the common bile duct. Bile flowed through the stent. The stent was in good position. Indomethacin 100 mg was given via suppository to decrease the risk of post-ERCP pancreatitis (PEP). Impression: - A bile leak from duct of Luschka was found. - A biliary sphincterotomy was performed. - One plastic biliary stent was placed into the common bile duct. Recommendation: - Return patient to [facility] for [facility] care. - Clear liquid diet today. - PO PPI BID. - Repeat ERCP in 2 - 3 months to remove stent. Alexander Kimball MD 03/30/2022 12:30:00 PM This report has been signed electronically. Note Initiated On: 03/30/2022 11:26 AM Number of Addenda: 0 I attest to the content of the Intraoperative Record and orders documented therein, exceptions below {[id number]}
--- NOTE | 2022-03-30 13:04 | Fluoroscopy Report ---
[place] ERCP biliary ductal CLINICAL HISTORY: ERCP. Possible bile duct injury/leak. COMPARISON STUDY: MRCP 03/29/2022. FLUOROSCOPY TIME: 36 seconds. FINDINGS: 16 fluoroscopic spot images of the right upper quadrant were submitted. The ampulla was can nulated and contrast was injected into the common bile duct. The patient is status post cholecystecto my. A balloon sweep was performed. There is contrast seen within the gallbladder fossa confirming the bile duct leak. This is followed by placement of a common bile duct stent which appears in good posi tion. IMPRESSION: 1. Confirmation of the bile duct leak. 2. Placement of a common bile duct stent which appears in good position. ACT 112: Negative or not required by law. Electronically signed by: Kulwant Bonilla M.D. 03/30/2022 1:02 PM
--- NOTE | 2022-03-30 13:30 | Anesthesiology Progress Note ---
Date of Service March 30, 2022 Anesthesia Post Procedure Vital Signs Vital Signs: Temp Pulse Pulse Pulse Resp BP Pulse Ox 03/30/22 13:10 98.7 F 59 L 18 164/83 H 95 03/30/22 12:45 58 L 19 160/78 H 93 03/30/22 12:35 61 18 155/74 H 94 03/30/22 12:55 97.5 F L 60 22 161/81 H 94 03/30/22 12:26 96.8 F L 61 19 154/74 H 94 03/30/22 07:30 99.3 F 67 20 149/75 H 90 03/29/22 21:38 98.2 F 64 16 187/80 H 93 03/29/22 17:23 16 188/85 H 93 O2 Del Method O2 Flow Rate 03/30/22 13:10 Nasal Cannula 3 03/30/22 12:45 3 03/30/22 12:35 4 03/30/22 12:55 3 03/30/22 12:26 6 03/30/22 07:30 Room Air 03/29/22 21:38 Room Air 03/29/22 17:23 Room Air Pain Intensity Abdomen: Pain Intensity: 3 Transfer of Care Handoff Completed per policy Notes Mental Status: alert / awake / arousable and participated in evaluation Patient Amnestic to Procedure: Yes Nausea / Vomiting: adequately controlled Pain: adequately controlled Airway Patency, RR, SpO2: stable & adequate BP & HR: stable & adequate Hydration State: stable & adequate Anesthetic Complications: no major complications apparent and Pt Satisfied with anesthetic care
[2022-03-30] MEDS: PIPERACILLIN/TAZOBACTAM 3.375 GM in DEXTROSE 5% 100 ML IV SCH ×2 (14:01→20:24)
[2022-03-30] MEDS ORDERED: Nursing to Pharmacy Communication SCH (17:30)
[2022-03-30] MEDS: TAMSULOSIN HCL 0.4 MG CAP PO SCH (20:25)
[2022-03-30] MEDS ORDERED: MAGNESIUM HYDROXIDE SUSP 30 ML UDC PO PRN (20:54)
[2022-03-31] MEDS: SODIUM CHLORIDE 0.9% 1000ML 1,000 ML IV SCH (01:53)
[2022-03-31] MEDS: PIPERACILLIN/TAZOBACTAM 3.375 GM in DEXTROSE 5% 100 ML IV SCH (04:09)
[2022-03-31 06:44] LABS: Basophils # (auto) 0.01 K/uL (0-0.2); Basophils % (auto) 0.1 %; Eosinophils # (auto) 0.01 K/uL (0-0.50); Eosinophils % (auto) 0.1 %; Hematocrit (blood only) 36.4 % (40.1-51.0); Hemoglobin 12.8 g/dl (14.0-18.0); Immature Granulocytes # (auto) 0.04 K/uL (0.00-0.02); Immature Granulocytes % (auto) 0.5 %; Lymphocytes # (auto) 0.71 K/uL (1.2-3.4); Lymphocytes % (auto) 8.9 %; Mean Corpuscular Hemoglobin 32.1 pg (25.0-34.0); Mean Corpuscular Hgb Conc 35.2 g/dL (32.0-36.0); Mean Corpuscular Volume 91.2 fL (80.0-100.0); Mean Platelet Volume 9.4 fL (9.4-12.4); Monocytes # (auto) 0.87 K/uL (0.24-0.82); Monocytes % (auto) 10.9 %; Neutrophils # (auto) 6.37 K/uL (1.4-6.5); Neutrophils % (auto) 79.5 %; Platelet Count 161 K/uL (130-400); RDW Coefficient of Variation 11.9 % (11.5-14.5); RDW Standard Deviation 39.9 fL (36.4-46.3); Red Blood Count 3.99 M/uL (4.63-6.08); White Blood Count 8.01 K/ul (4.8-10.8)
[2022-03-31 07:12] LABS: Albumin Level 3.1 gm/dl (3.4-5.0); BUN Creatinine Ratio 24.2 (10-20); Bilirubin Direct 0.5 mg/dl (0-0.2); Bilirubin,Total 2.3 mg/dl (0.2-1.0); Creatinine Clr Calc Pharmacy 70.7 ml/min; Est GFR (African American) 93.6 ml/min; Est GFR (Non-African American) 80.8 ml/min; Potassium 3.8 mmol/L (3.5-5.1); Total Protein 5.4 gm/dl (6.0-8.3)
--- NOTE | 2022-03-31 09:15 | Surgery Progress Note ---
Date of Service March 31, 2022 Assessment & Plan (1) Abdominal pain, acute, right upper quadrant: Plan: s/p ERCP /stent placement for bile leak ok for discharge home Pt seen/examined with Dr. Vivas Admission and Anticipated Discharge Date Admission Date: March 29, 2022 Subjective abdominal pain resolved, tolerating diet Physical Exam Constitutional: WD/WN, vitals as above Gastrointestinal (Abdomen): Inspection/Auscultation: abdomen not distended Percussion/Palpation: abdomen soft Results & Data ([facility]) Vital Signs (Past 12 Hours) Vital Signs Temp Pulse Pulse Resp BP Pulse Ox O2 Del Method 03/31/22 07:41 36.8 C 55 L 16 122/67 92 Room Air 03/31/22 04:17 36.9 C 57 L 16 123/67 93 Room Air 03/30/22 21:45 36.8 C 60 18 162/74 H 92 Room Air PG Care Time/CCT Total # of Minutes Spent Total Time Spent with Patient: Total time spent is greater than 50% in coordination of care (as documented) at patient's floor/unit and/or counseling patient: Coding Level of Care Code None Diagnoses Abdominal pain, acute, right upper quadrant R10.11
--- NOTE | 2022-03-31 10:38 | Discharge Summary ---
Date of Service March 31, 2022 Admission HPI Per Admitting Provider This is a 71yM with a PMH of prostate ca who presents to the [facility] ED on 03/29/22 with acute onset abdominal pain. Of significance the patient recently underwent an elective lap sanjuanita on 03/21/[address] Naidu. He had been doing well since post op, but did return to the OR for urinary retention and upton catheter was placed in the ER on POD#0 and was otherwise suppose to upotn up with Urology today for a void trial. Patient states his pain felt similar to his previous gallbladder attacks. The pain came on acutely this AM and was associated with nausea. Due to the severity of the pain, mostly located in the RUQ he came into the ER for further evaluation. In the ER he underwent a CT a/p that revealed expected postoperative change in the gallbladder fossa without any organized fluid collection. The patient denies any fevers/chills, vomiting, or recent change in bowel habits. Principal Diagnosis Postoperative bile leak from duct of Luschka Discharge Exam Constitutional WD/WN, vitals as above Gastrointestinal (Abdomen) Inspection/Auscultation: abdomen not distended Percussion/Palpation: abdomen soft Discharge Data Allergies Allergy/AdvReac Type Severity Reaction Status Date / Time cat dander Allergy Mild watery eyes Verified 03/22/22 00:40 dog dander Allergy Mild watery eyes Verified 03/22/22 00:40 pollen extracts Allergy Unknown ENVIRONMENTAL, Verified 03/22/22 00:40 watery eyes procaine Allergy Unknown FATHER HAD Verified 03/22/22 00:40 ANAPHYLAXIS FROM NOVOCAINE epinephrine AdvReac Mild Shakes Verified 03/22/22 00:40 when given at the dentist ANESTHETIC AdvReac Severe URINARY Uncoded 03/22/22 00:40 RETENTION Consultations 03/29/22 20:17 Consult Gastroenterology Routine Procedures Performed Operation Date: 03/30/22 12:00 Actual Procedures p Endoscopic Retrograde Cholangiopancreatogram(Not Applicable) - Alexander Kimball MD Ordered Studies 03/29/22 08:51 CT abd pelvis wo con Stat 03/29/22 11:03 MR MRCP Stat 03/30/22 [place] ERCP biliary ductal Routine Hospital Course (1) Abdominal pain, acute, right upper quadrant: 71-year-old male presented emergency department with sudden onset abdominal pain 1 week status post laparoscopic cholecystectomy. Concern was for bile leak however HIDA scan was unavailable. Patient was admitted the surgical service. MRCP was obtained and showed evidence of bile leak. GI was consulted and performed ERCP with stent placement in the morning. By the next day his pain had resolved. He was able to tolerate diet. He was stable for discharge. Total Time Total Time Spent Total Time Spent (In Minutes): 15 Discharge Plan Discharge Items Patient Disposition: Home - Self-Care Reason For Visit: H/O LAP SANJUANITA,ABD PAIN Discharge Diagnosis: bile leak Activity: Per Instructions section Lifting: No more than 10 pounds Bathing Comment: may shower Exercise/Sports: Wait until after follow-up appointment Driving/Machine Use: no driving if taking any narcotics for pain Non-emergency contact: Surgeon and Director Revenue Call non-emergency contact if: you have any medication questions, your symptoms worsen, your pain is not controlled, your pain is concerning for you, you have a fever, your temperature is above 101.5, your wound has increased redness, your wound has increased drainage and your wound pain has increased Follow-up/Referrals: Finn Naidu DO [Surgeon] - (Please follow up with Dr. Naidu in clinic as previously planned) Barber Pena DO [Primary Care Provider] - Alexander Kimball MD [Physician] - (Please call the office to schedule an appointment for drain removal in 2-3 months) Diet: Regular Addtl Attending Provider Instructions: Please call the Director Revenue to schedule an appointment for removal of your stent within 2-3 months time Pending Studies at Discharge: No Stand-Alone Forms: My [facility] Pansieve, Smoking Cessation Medications and DC Order Prescriptions: New ciprofloxacin HCl 500 mg tablet 500 mg PO BID Qty: 10 0RF Continued diphenhydramine HCl [Allergy (diphenhydramine)] 25 mg capsule 25 mg PO PRN (Reason: Allergy Symptoms) ascorbic acid (vitamin C) 500 mg capsule 500 mg PO BID glucosamine-chondroitin 900 mg tablet 900 mg PO QAM ibuprofen 200 mg Tablet 200 mg PO DAILY PRN (Reason: Pain) tamsulosin [Flomax] 0.4 mg Capsule 0.4 mg PO QPM Discharge Orders: Discharge Order (Routine); Ordered 03/31/22 Ordered By: Jonnie Coon Jr Admission Data Admit Date/Time: 03/29/22 11:03 Attending Provider: Travis Vivas Admit Provider: Travis Vivas Primary Care Provider: Barber Pena Other Providers: Ar Pederson ; Ankit Watts ; Davina James ; Stephanie Stovall ; Gladys Purvis ; Viri Lares ; Luis Alfredo Shepherd ; Rula Desir ; Andres Brown ; Ezekiel Brown ; Eliana Ordaz ; Carlos Enrique Becker ; Marisol Maciel ; Aide Neives ; Toya Ngo ; Germaine Jackson ; Alexander Kimball ; Jitendra Sun ; Miko Abraham ; Mallory Arrington ; Graeme Little Jr Other Interventions: Discharge Summary Assessment (RN) Last Done: 03/31/22 10:06 Coding Level of Care Code D/C DAY MANAGEMENT <30 MINS Diagnoses Abdominal pain, acute, right upper quadrant R10.11
== END 2022-03-31 11:39 | disposition home or self-care (01) ==
LOC: ED 08:23 → 3W 08:23

== ENCOUNTER 2024-12-24 19:23 | Inpatient (IN) ==
--- NOTE | 2024-12-24 19:39 | Emergency Department Note ---
Impression & Plan Urinary retention, Malfunction of Upton catheter, Hematuria ED Provider Note CHIEF COMPLAINT: Clogged catheter HISTORY OF PRESENTING ILLNESS: This 74-year-old male patient presents to the emergency department for evaluation of a clogged catheter. The patient had his catheter placed yesterday, but has not had any drainage since 4 PM. He denies any pain or other symptoms. The patient has a history of prostate cancer as well as an 8 mm left ureteral calculus. The patient had cystoscopic removal of the ureteral stone with left ureteral stent placement by Dr. Montez on 12/15/2024. The patient had his stent removed on 12/16/2024 and a 16 Portuguese Upton catheter placed. The patient then had the Upton catheter removed by urology on 12/21/2024. He was able to void after the Upton catheter removal. He was then visiting his son in [place] and started with painful urination and urinating blood on 12/22/24. He went to the ER in [place] and had a catheter placed and was started on possibly Keflex per patient. However, while he was in the ER his catheter got clogged multiple times with blood clots that needed to be flushed. His catheter seemed to be draining fine after discharge until around 4 pm tonight. He had been seeing intermittent blood clots earlier in the day. He tried to urinate this evening and the urine leaked around the catheter instead of going into the catheter. The patient called urology today and he has an appt with urology on Friday for follow up. They advised him to go to the ER sooner for any continued problems with the catheter. REVIEW OF SYSTEMS: See HPI for pertinent positives and pertinent negatives. ALLERGIES: Cat and dog dander, Cipro, pollen extracts, epinephrine MEDICATIONS: See below PAST MEDICAL HISTORY: See below PHYSICAL EXAM: VITALS: Vitals are noted on the nurse's note and reviewed by myself. GENERAL: Non toxic, in no acute distress, non-diaphoretic. SKIN: Capillary refill <2 sec. HEART: Regular rate and rhythm without murmurs gallops or rubs. LUNGS: Clear to auscultation bilaterally without wheezes, rales or rhonchi. No retractions or accessory muscle use. ABDOMEN: Positive bowel sounds x 4. Normal tympanic percussion. Soft, nontender to palpation. No masses or hepatosplenomegaly. Escobar sign negative. No CVA tenderness. No guarding, rigidity, or rebound tenderness. No focal RLQ or LLQ tenderness. : No urethral meatus lesions. No penile discharge. NEURO: Patient was alert and oriented. No focal neurological deficits. DIFFERENTIAL DIAGNOSIS: Differential diagnosis includes UTI, kidney stone, bladder lesion, hematuria, blood clots of the bladder, sepsis, or others. ED COURSE AND MEDICAL DECISION MAKING: MEDICATIONS GIVEN: Oxy IR 5 mg p.o. 500 mL normal saline solution bolus. Rocephin 2 g IV. INTERPRETATION OF LABS: Laboratory studies were still pending at the time of admission. INTERPRETATION OF IMAGING: Imaging studies were interpreted by myself and read by radiology as per the imaging section of this note. The patient was advised to follow up with their PCP and/or specialist(s) for further outpatient management of any non-emergent abnormal findings. Renal and bladder ultrasound were still pending at the time of admission. EXTERNAL RECORDS REVIEWED: I reviewed the patient's outpatient urology office visit notes as summarized above. CONSULTATIONS: Dr. Bernal of urology. On-call hospitalist. MDM SUMMARY: I examined the patient. The patient had a removal of an 8 mm left ureteral stone by urology on 12/15/2024. A stent was placed at that time. The patient had the stent removed on 12/16/2024 by urology and a 16 Portuguese Upton catheter was placed. The Upton catheter was removed by urology on 12/21/2024. The patient was then at his son's house in [place] when he started having urinary symptoms as well as passing blood clots. He was seen in an ER in [place] and a Upton catheter was placed and he was diagnosed with a UTI. He states that he had multiple clots that were clogging the Upton catheter and he needed to stay in the ER for many hours to have continued irrigation. However, after discharge he had good urinary output into the catheter until 4 PM this afternoon when he had no output into the Upton catheter. The patient has an 18 Portuguese [address] catheter in place. Nursing staff attempted to irrigate the Upton catheter multiple times. Intermittently nursing staff would get good return, but other times will not get any return. Nursing staff stated that it felt like there was a large clot that was intermittently blocking the Upton catheter. I spoke with Dr. Bernal of urology. He recommended placing a 22 or 24 Portuguese three-way catheter to help with passage of the clots and to help prevent clogging of the catheter. Lidocaine jelly was placed and nursing staff attempted to place a 24 Portuguese Upton catheter. However, nursing staff met resistance after only approximately 1 inch into the urethra. The patient was unable to tolerate any additional attempt to place the larger Upton catheter. I spoke with Dr. Bernal again who recommended placing a smaller a Upton catheter and getting a bladder ultrasound to evaluate how much debris/clots was still present in the bladder. He stated that if the patient had continued hematuria, clots, or clogging of his Upton catheter that he could be admitted for periodic irrigation of his Upton catheter and further urologic evaluation tomorrow. After lidocaine jelly, nursing staff was able to place a 20 Portuguese three-way catheter. The patient did have some discomfort from the fullness from the larger catheter. He was given Oxy IR 5 mg p.o. While waiting for the renal/bladder ultrasound, the patient had passage of a few additional blood clots and a small amount of blood into the Upton bag. I discussed continued observation and waiting for the ultrasound results versus admission for continued management. The patient was concerned that he would go home and have blockage of his catheter again and need to return to the ER and he preferred admission. An IV lock was placed and labs were drawn. He was given 500 mL normal saline solution bolus. He was given Rocephin 2 g IV because of the previously diagnosed UTI. I had a meaningful discussion about this patient with Dr. Torre who agrees with my assessment and the treatment plan. I spoke with the on-call hospitalist who agreed to admit the patient for further evaluation and treatment. Please refer to their dictation for further details. The patient's laboratory studies, urinalysis, and ultrasound report were still pending at the time of admission. The patient's care was transferred in stable condition. DIAGNOSIS: Urinary retention due to Upton catheter malfunction Hematuria with blood clots Previously diagnosed UTI Past Med/Surg History Problem List (Updated 12/25/24 @ 00:14 by Ita Ruvalcaba PA-C) Hematuria (Acute) Malfunction of Upton catheter (Acute) Urinary retention (Acute) Left ureteral calculus Hyperlipidemia History of cholecystectomy Dysfunction of left eustachian tube Abdominal pain, acute, right upper quadrant (Acute) Gallstones and inflammation of gallbladder without obstruction Sensorineural hearing loss (SNHL) of left ear with unrestricted hearing of right ear Arthritis (Acute) Elevated PSA (Acute) Left inguinal hernia (Acute) Urinary symptom or sign (Acute) Prostate cancer (Acute) "Prostate, adenocarcinoma, ruslan 3 + 3, PSA 5.62, [id number], group I" Encounter for pre-operative examination Medical History (Updated 12/25/24 @ 00:14 by Ita Ruvalcaba PA-C) Left ureteral calculus Hyperlipidemia Arthritis Prostate cancer currently being monitored / no treatment "Prostate, adenocarcinoma, ruslan 3 + 3, PSA 5.62, [id number], group I" History of asthma as a child>had an inhaler H/O bronchitis Surgical History Hx of endoscopic retrograde cholangiopancreatography (03/2022) Hx of cholecystectomy (03/2022) History of anesthesia reaction urinary retention>required upton catheter at discharge -- this occurred twice History of tooth extraction H/O colonoscopy History of hernia repair inguinal- 15-20 years ago H/O rotator cuff surgery RT ~ 10 years ago Family History (Updated 12/08/24 @ 15:53 by Jacqui Kline) Mother Hypertension Stroke Father Myocardial infarction History of anesthesia reaction father had severe anaphlaxsis when administered novocaine- pt. 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 Required: No Beliefs That Will Affect Care: None marital status: Current Living Situation: Spouse current occupational status: retired How many Children do You have: 3 Feels Safe at Home: Yes Childhood Exposure to Second-Hand Smoke: Yes Diet: regular caffeine: Yes during the past year weight has: remained stable Dental Care, Regularly: Yes Physical Activity Frequency: Daily Seatbelt Use: always Sunscreen Use: Yes Assistive Devices: Glasses Allergies Allergies Allergy/AdvReac Type Severity Reaction Status Date / Time cat dander Allergy Mild watery eyes Verified 12/24/24 23:16 dog dander Allergy Mild watery eyes Verified 12/24/24 23:16 pollen extracts Allergy Mild ENVIRONMENTAL, Verified 12/24/24 23:16 watery eyes ciprofloxacin [From Cipro] AdvReac Intermediate Gastrointestinal Verified 12/24/24 23:16 Upset epinephrine AdvReac Intermediate Shakes Verified 12/24/24 23:16 when given at the dentist ANESTHETIC AdvReac Severe URINARY Uncoded 12/24/24 23:16 RETENTION Home Meds Home Medications Medication Instructions Recorded Confirmed ascorbic acid (vitamin C) 500 mg 500 mg PO BID 01/05/19 12/24/24 capsule diphenhydramine HCl 25 mg capsule 25 mg PO DAILY PRN Allergy Symptoms 01/05/19 12/24/24 (Allergy (diphenhydramine)) ibuprofen 200 mg tablet 200 - 400 mg PO DIRECTED PRN 03/22/22 12/24/24 Pain naphazoline 0.025 %-pheniramine 2 drp ophthalmic (eye) BID PRN 12/08/24 12/24/24 0.3 % eye drops allergies fluticasone propionate 50 2 spray intranasal DAILY 12/15/24 12/24/24 mcg/actuation nasal spray,suspension (Flonase Allergy Relief) cefdinir 300 mg capsule 300 mg PO BID 12/24/24 12/24/24 omega-3 fatty acids 1,000 mg 1,000 mg PO BID 12/24/24 12/24/24 capsule (Super [place]-3) Previous Rx's Medication Instructions Recorded oxycodone 5 mg tablet 5 mg PO Q6H PRN pain #5 tabs 12/15/24 Results & Data (ED) Vital Signs Vital Signs - 24 hr 12/24/24 19:24 12/24/24 19:26 12/24/24 21:24 Temperature 36.7 C Temperature Source Temporal Artery Scan Pulse Rate 54 L Pulse Rate [Left] 83 Pulse Rhythm Regular Pulse Strength Normal Respiratory Rate 16 17 16 Respiratory Effort / Characteristics Non-Labored Spontaneous Respiratory Depth Normal Respiratory Pattern Regular Blood Pressure 150/76 H Blood Pressure [Left Arm] 138/80 Blood Pressure Mean 100 Blood Pressure Mean [Left Arm] 99 Blood Pressure Position Sitting Pulse Oximetry 97 97 Oxygen Delivery Method Room Air Room Air Sepsis Recent Fever Within 48 Hours No Sepsis New/Unexplained Change in Mental Status N/A Sepsis Action Taken by Nursing No Action Required 12/24/24 23:00 Temperature Temperature Source Pulse Rate 52 L Pulse Rate [Left] Pulse Rhythm Pulse Strength Respiratory Rate 20 Respiratory Effort / Characteristics Respiratory Depth Respiratory Pattern Blood Pressure 167/97 H Blood Pressure [Left Arm] Blood Pressure Mean 120 Blood Pressure Mean [Left Arm] Blood Pressure Position Pulse Oximetry 99 Oxygen Delivery Method Room Air Sepsis Recent Fever Within 48 Hours Sepsis New/Unexplained Change in Mental Status Sepsis Action Taken by Nursing Administered Medications Discontinued Medications Lidocaine HCl (Lidocaine 2% Jelly 5 Ml Tube) 5 ml EXT NOW ONE Stop: 12/24/24 21:18 Last Admin: 12/24/24 21:23 Dose: 5 ml Documented By: PATRIZIA Lidocaine HCl (Lidocaine 2% Jelly 5 Ml Tube) 5 ml EXT NOW ONE Stop: 12/24/24 21:57 Last Admin: 12/24/24 22:04 Dose: 5 ml Documented By: PATRIZIA Oxycodone HCl (Oxycodone Hcl Ir 5 Mg Tab (Immediate Release)) 5 mg PO NOW STA Stop: 12/24/24 22:21 Last Admin: 12/24/24 22:22 Dose: 5 mg Documented By: PATRIZIA Discharge Plan Visit Data Chief Complaint: Catheter Replacement Stated Complaint: CLOGGED CATHETER ED Provider: Jay Torre ED Midlevel Provider: Ita Ruvalcaba Discharge Problem: Urinary retention, Malfunction of Upton catheter, Hematuria Patient Disposition: Admitted As Inpatient Condition: Fair Forms Stand Alone Forms: Counts Include [facility] Prescriptions Prescriptions: No Action diphenhydramine HCl [Allergy (diphenhydramine)] 25 mg capsule 25 mg PO DAILY PRN (Reason: Allergy Symptoms) ascorbic acid (vitamin C) 500 mg capsule 500 mg PO BID ibuprofen 200 mg Tablet 200 - 400 mg PO DIRECTED PRN (Reason: Pain) omega-3 fatty acids [Super [place]-3] 1,000 mg Capsule 1,000 mg PO BID cefdinir 300 mg capsule 300 mg PO BID Rx Instructions: 12/23/24 FOR 7 DAYS naphazoline-pheniramine 0.025-0.3 % Drops 2 drp OPHTHALMIC (EYE) BID PRN (Reason: allergies) fluticasone propionate [Flonase Allergy Relief] 50 mcg/actuation spray,suspension 2 spray intranasal DAILY Rx Instructions: administer into each nostril oxycodone 5 mg tablet 5 mg PO Q6H PRN (Reason: pain) Qty: 5 0RF Referrals Referrals: Barber Pena DO [Primary Care Provider] - Discharge Problem: Malfunction of Upton catheter Qualifiers: Encounter type: initial encounter Qualified Code(s): T83.011A - Breakdown (mechanical) of indwelling urethral catheter, initial encounter Hematuria Qualifiers: Hematuria type: gross Qualified Code(s): R31.0 - Gross hematuria
--- NOTE | 2024-12-24 20:21 | Emergency Department Note ---
ED Visit Note I was consulted by the Advanced Practice Provider. I personally made/approved the management plan and take responsibility for the patient management. I performed a substantive portion of the visit. This includes the aspects of: The patient has a UTI and presents with a blocked Martin catheter. Despite multiple attempts to get the clots to clear, we were basically unsuccessful. The patient is in need of a hospital stay for more bladder irrigation. He may benefit from an official urology consult and potential urology intervention. The on-call hospitalist was consulted. Lab work was ordered for the admission, this is pending. .
[2024-12-24] MEDS: LIDOCAINE 2% JELLY 5 ML TUBE EXT ONE ×2 (21:23→22:04)
[2024-12-25] MEDS: SODIUM CHLORIDE 0.9% 500 ML IV ONE (00:09)
[2024-12-25] MEDS: cefTRIAXone SODIUM 2,000 MG/50 ML BAG IV STA (00:09)
[2024-12-25 00:19] LABS: Hematocrit (blood only) 43.8 % (42.0-52.0); Hemoglobin 15.1 g/dl (14.0-18.0); Immature Granulocytes # (auto) 0.03 K/uL (0.01-0.20); Immature Granulocytes % (auto) 0.5 %; Mean Corpuscular Hemoglobin 31.7 pg (25.0-34.0); Mean Corpuscular Volume 92.0 fL (80.0-100.0); Platelet Count 196 K/uL (130-400); RDW Standard Deviation 42.0 fL (36.4-46.3); Red Blood Count 4.76 M/uL (4.70-6.10); White Blood Count 6.08 K/ul (4.8-10.8)
--- NOTE | 2024-12-25 00:43 | Ultrasound Report ---
Exam(s): US RENAL EXAM: US Retroperitoneal Limited, Renal CLINICAL HISTORY: Reason for exam: Urinary retention, blood clots. TECHNIQUE: Real-time limited ultrasound of the retroperitoneum with image documentation. COMPARISON: CT abdomen/pelvis: 12/03/2024 FINDINGS: Right kidney: Unremarkable, measured 10.6 cm in length. No stones. No solid mass. No hydronephrosis. Left kidney: Unremarkable, measured 11.3 cm in length. No stones. No solid mass. No hydronephrosis. Other findings: A decompressed urinary bladder with a Martin's catheter is seen. A nonspecific hypoechoic complex material is seen surrounding the catheter with minimal Doppler color flow, probably represents an enlarged protruding prostate soft tissue in correlation with the recent CT exam. Advise follow-up. IMPRESSION: Unremarkable renal ultrasound. Additional findings as above . Electronically signed by: Dano Reveles MD, TETE 12/25/24 00:42 AM
[2024-12-25 00:49] LABS: Appearance Urine Clear (Clear); Bacteria Urine Automated None Seen (None Seen); Epithelial Cell Urine Auto 0-2 /hpf (0-2); Glucose Urine UA Negative (Negative); RBC Urine Automated >20 /hpf (0-2); WBC Urine Automated 21-50 /hpf (0-5)
[2024-12-25 01:01] LABS: Anion Gap 7.0 (3-11); Blood Urea Nitrogen 26.0 mg/dl (6-23); Calcium 9.3 mg/dl (8.6-10.3); Carbon Dioxide 28.0 mmol/L (21-32); Chloride 106.0 mmol/L (98-107); Creatinine Clr Calc Pharmacy 59.1 ml/min; Glucose 102.0 mg/dl (70-99(Fasting)); Potassium 4.0 mmol/L (3.5-5.1); Sodium 141.0 mmol/L (136-145)
[2024-12-25 01:59] VITALS: PULSE 51
[2024-12-25] MEDS ORDERED: POLYETHYLENE (MIRALAX) 17 GM PACK PO PRN (02:00)
[2024-12-25] MEDS ORDERED: DOCUSATE SODIUM 100 MG CAP PO PRN (02:00)
[2024-12-25] MEDS ORDERED: ONDANSETRON INJ 2 MG/ML 2 ML VIAL IV PRN (02:00)
--- NOTE | 2024-12-25 02:04 | History & Physical Report ---
Date of Service December 24, 2024 Assessment & Plan (1) Hematuria: (2) UTI (urinary tract infection): Plan 74yo male presenting with hematuria, malfunction of Upton catheter. #Hematuria - H/H is stable and acceptable at 15.1 and 43.8, renal function intact. -20 [place] [address] catheter in place presently. Seems to be draining appropriately - yellow urine in the bag -Monitor output -Manually flush for decreased output -Bladder scan as needed -Tylenol PRN pain or fever -Oxycodone PRN moderate-severe pain -Urology consultation appreciated #UTI - patient recently diagnosed with UTI -Check urine culture -Ceftriaxone Admission and Anticipated Discharge Date Admission Date: December 25, 2024 History of Present Illness Chief Complaint: hematuria Primary Care Provider: Barber Pena DO Manolo Clements is a 74yo male presenting with hematuria. Patient recently found to have an obstructing renal stone. He was taken to the OR on 12/15/24 for cystoscopy, with removal of ureteral stone and left ureteral stent placement. He was seen in the Urology office on 12/16/24 and found to have an elevated post-void residual volume of 631mL so the stent was removed and a Upton. He was seen again in the office on 12/21/2024 and his Upton was removed. He was voiding well with no complaints until he went to [place] to visit his son. On the evening of 12/22 he started to have hematuria with passage of clots. He reports having severe urinary urgency - needing to urinate every 30 minutes and strain with painful urination and passing small volumes. These symptoms persisted for 4 hours and then he went to the ER. Patient was diagnosed with a UTI and given antibiotics. A Upton catheter was placed that reportedly clogged several times then a 3-way catheter was placed and patient placed on CBI overnight. Patient returned home with catheter in place. He continued to pass a small amount of blood and occasional clots. Today he noted that the flow from his catheter diminished significantly throughout the day which prompted him to come to the ER. Attempts made to irrigate patient's Upton were unsuccessful. A new 20F three way catheter was placed in the ER Patient presently complaining of some urethral discomfort ER Course: Oxycodone 5mg Ceftriaxone 2gm NSS 500mL Lidocaine jelly Allergies Allergy/AdvReac Type Severity Reaction Status Date / Time cat dander Allergy Mild watery eyes Verified 12/24/24 23:16 dog dander Allergy Mild watery eyes Verified 12/24/24 23:16 pollen extracts Allergy Mild ENVIRONMENTAL, Verified 12/24/24 23:16 watery eyes ciprofloxacin [From Cipro] AdvReac Intermediate Gastrointestinal Verified 12/24/24 23:16 Upset epinephrine AdvReac Intermediate Shakes Verified 12/24/24 23:16 when given at the dentist ANESTHETIC AdvReac Severe URINARY Uncoded 12/24/24 23:16 RETENTION Home Medications Medication Instructions Recorded Confirmed Type ascorbic acid (vitamin C) 500 mg 500 mg PO BID 01/05/19 12/24/24 History capsule diphenhydramine HCl 25 mg capsule 25 mg PO DAILY PRN Allergy Symptoms 01/05/19 12/24/24 History (Allergy (diphenhydramine)) ibuprofen 200 mg tablet 200 - 400 mg PO DIRECTED PRN 03/22/22 12/24/24 History Pain naphazoline 0.025 %-pheniramine 2 drp ophthalmic (eye) BID PRN 12/08/24 12/24/24 History 0.3 % eye drops allergies fluticasone propionate 50 2 spray intranasal DAILY 12/15/24 12/24/24 History mcg/actuation nasal spray,suspension (Flonase Allergy Relief) oxycodone 5 mg tablet 5 mg PO Q6H PRN pain #5 tabs 12/15/24 12/24/24 Rx cefdinir 300 mg capsule 300 mg PO BID 12/24/24 12/24/24 History omega-3 fatty acids 1,000 mg 1,000 mg PO BID 12/24/24 12/24/24 History capsule (Super [place]-3) Past Med/Surg History Problem List (Updated 12/25/24 @ 02:14 by Gabrielle Dang DO) UTI (urinary tract infection) Hematuria (Acute) Malfunction of Upton catheter (Acute) Urinary retention (Acute) Left ureteral calculus Hyperlipidemia History of cholecystectomy Dysfunction of left eustachian tube Abdominal pain, acute, right upper quadrant (Acute) Gallstones and inflammation of gallbladder without obstruction Sensorineural hearing loss (SNHL) of left ear with unrestricted hearing of right ear Arthritis (Acute) Elevated PSA (Acute) Left inguinal hernia (Acute) Urinary symptom or sign (Acute) Prostate cancer (Acute) "Prostate, adenocarcinoma, ruslan 3 + 3, PSA 5.62, [id number], group I" Encounter for pre-operative examination Medical History Left ureteral calculus Hyperlipidemia Arthritis Prostate cancer currently being monitored / no treatment "Prostate, adenocarcinoma, ruslan 3 + 3, PSA 5.62, [id number], group I" History of asthma as a child>had an inhaler H/O bronchitis Surgical History Hx of endoscopic retrograde cholangiopancreatography (03/2022) Hx of cholecystectomy (03/2022) History of anesthesia reaction urinary retention>required upton catheter at discharge -- this occurred twice History of tooth extraction H/O colonoscopy History of hernia repair inguinal- 15-20 years ago H/O rotator cuff surgery RT ~ 10 years ago Family History Mother Hypertension Stroke Father Myocardial infarction History of anesthesia reaction father had severe anaphlaxsis when administered novocaine- pt. 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 Beliefs That Will Affect Care: None marital status: Current Living Situation: Spouse current occupational status: retired How many Children do You have: 3 Feels Safe at Home: Yes Childhood Exposure to Second-Hand Smoke: Yes Diet: regular caffeine: Yes during the past year weight has: remained stable Dental Care, Regularly: Yes Physical Activity Frequency: Daily Seatbelt Use: always Sunscreen Use: Yes Assistive Devices: Glasses Review of Systems Review of Systems: All systems reviewed & are unremarkable except as noted in HPI & below Physical Exam Physical Exam: General: patient resting comfortably, NAD, non-toxic in appearance, AA&O x 4 Skin: warm, dry, intact, no rashes or lesions HEENT: NC/AT, PERRL, EOMI, anicteric sclera, conjunctiva without injection, external ear normal to inspection and nontender, nares patent, moist mucus membranes, dentition intact, no oropharyngeal lesions, neck supple, trachea midline, no LAD, no thyromegaly, no JVD Heart: +S1/S2, regular, no m/r/g Lungs: equal air entry bilaterally, no rales/rhonchi/wheezes Abd: +BS, soft, NT/ND, no masses/organomegaly/ascites Ext: warm, 2+ pulses in UE/LE bilaterally, no clubbing/cyanosis or edema, Upton in place with yellow urine in bag - no blood at present Neuro: nonfocal, patient AA&O x 4, speech intact, no facial droop, moving all extremities on command with equal strength 5/5 Results & Data Results & Data Vital Signs (Past 12 Hours) Vital Signs Temp Pulse Pulse Resp BP BP Pulse Ox 12/25/24 01:00 48 L 23 97 12/25/24 00:09 51 L 19 163/82 H 96 12/24/24 23:00 52 L 20 167/97 H 99 12/24/24 21:24 83 16 138/80 97 12/24/24 19:26 36.7 C 54 L 17 150/76 H 97 12/24/24 19:24 16 O2 Del Method 12/25/24 01:00 12/25/24 00:09 Room Air 12/24/24 23:00 Room Air 12/24/24 21:24 Room Air 12/24/24 19:26 Room Air 12/24/24 19:24 Laboratory Results Laboratory Results WBC 6.08 K/ul (4.8-10.8) 12/24/24 23:46 RBC 4.76 M/uL (4.70-6.10) 12/24/24 23:46 Hgb 15.1 g/dl (14.0-18.0) 12/24/24 23:46 Hct 43.8 % (42.0-52.0) 12/24/24 23:46 MCV 92.0 fL (80.0-100.0) 12/24/24 23:46 MCH 31.7 pg (25.0-34.0) 12/24/24 23:46 MCHC 34.5 g/dL (32.0-36.0) 12/24/24 23:46 RDW Std Deviation 42.0 fL (36.4-46.3) 12/24/24 23:46 RDW Coeff of Arpan 12.3 % (11.5-14.5) 12/24/24 23:46 Plt Count 196 K/uL (130-400) 12/24/24 23:46 MPV 10.9 fL (9.4-12.4) 12/24/24 23:46 Immature Gran % (Auto) 0.5 % 12/24/24 23:46 Neut % (Auto) 60.9 % 12/24/24 23:46 Lymph % (Auto) 21.7 % 12/24/24 23:46 [place] % (Auto) 12.8 % 12/24/24 23:46 Eos % (Auto) 3.6 % 12/24/24 23:46 Baso % (Auto) 0.5 % 12/24/24 23:46 Neut # (Auto) 3.70 K/uL (1.40-6.50) 12/24/24 23:46 Lymph # (Auto) 1.32 K/uL (1.20-3.40) 12/24/24 23:46 [place] # (Auto) 0.78 K/uL (0.11-0.59) H 12/24/24 23:46 Eos # (Auto) 0.22 K/uL (0.00-0.50) 12/24/24 23:46 Baso # (Auto) 0.03 K/uL (0.00-0.20) 12/24/24 23:46 Immature Gran # (Auto) 0.03 K/uL (0.01-0.20) 12/24/24 23:46 Sodium 141 mmol/L (136-145) 12/24/24 23:46 Potassium 4.0 mmol/L (3.5-5.1) 12/24/24 23:46 Chloride 106 mmol/L (98-107) 12/24/24 23:46 Carbon Dioxide 28 mmol/L (21-32) 12/24/24 23:46 Anion Gap 7 (3-11) 12/24/24 23:46 BUN 26 mg/dl (6-23) H 12/24/24 23:46 Creatinine 1.04 mg/dl (0.6-1.4) 12/24/24 23:46 Est Cr Clr Drug Dosing 59.1 ml/min 12/24/24 23:46 eGFR 75.82 12/24/24 23:46 BUN/Creatinine Ratio 25.0 (10-20) H 12/24/24 23:46 Glucose 102 mg/dl (70-99(Fasting)) H 12/24/24 23:46 Calcium 9.3 mg/dl (8.6-10.3) 12/24/24 23:46 Urine Color Yellow 12/24/24 23:46 Urine Appearance Clear (Clear) 12/24/24 23:46 Urine pH 6.0 (4.5-7.5) 12/24/24 23:46 Ur Specific [place] 1.021 (1.000-1.030) 12/24/24 23:46 Urine Protein 2+ (Negative) H 12/24/24 23:46 Urine Glucose (UA) Negative (Negative) 12/24/24 23:46 Urine Ketones Trace (Negative) H 12/24/24 23:46 Urine Blood 3+ (Negative) H 12/24/24 23:46 Urine Nitrite Negative (Negative) 12/24/24 23:46 Urine Bilirubin Negative (Negative) 12/24/24 23:46 Urine Urobilinogen Negative (Negative) 12/24/24 23:46 Ur Leukocyte Esterase 2+ (Negative) H 12/24/24 23:46 Urine WBC (Auto) 21-50 /hpf (0-5) H 12/24/24 23:46 Urine RBC (Auto) >20 /hpf (0-2) H 12/24/24 23:46 U Hyaline Cast (Auto) 3-5 /lpf (0-2) H 12/24/24 23:46 U Epithel Cells (Auto) 0-2 /hpf (0-2) 12/24/24 23:46 Urine Bacteria (Auto) None Seen (None Seen) 12/24/24 23:46 Urine Comment 12/24/24 23:46 Impressions Renal Ultrasound 12/24/24 21:56 Exam(s): US RENAL EXAM: US Retroperitoneal Limited, Renal CLINICAL HISTORY: Reason for exam: Urinary retention, blood clots. TECHNIQUE: Real-time limited ultrasound of the retroperitoneum with image documentation. COMPARISON: CT abdomen/pelvis: 12/03/2024 FINDINGS: Right kidney: Unremarkable, measured 10.6 cm in length. No stones. No solid mass. No hydronephrosis. Left kidney: Unremarkable, measured 11.3 cm in length. No stones. No solid mass. No hydronephrosis. Other findings: A decompressed urinary bladder with a Upton's catheter is seen. A nonspecific hypoechoic complex material is seen surrounding the catheter with minimal Doppler color flow, probably represents an enlarged protruding prostate soft tissue in correlation with the recent CT exam. Advise follow-up. IMPRESSION: Unremarkable renal ultrasound. Additional findings as above . Electronically signed by: Dano Reveles MD, TETE 12/25/24 00:42 AM Code Status & VTE Plan VTE Prophylaxis Plan VTE Prophylaxis will be ordered: Yes PG Care Time/CCT Total # of Minutes Spent Total Time Spent with Patient: Total time spent is greater than 50% in coordination of care (as documented) at patient's floor/unit and/or counseling patient: Coding Level of Care Code 77488 INT INP/OBS CARE 3/75MIN Diagnoses Hematuria R31.0 Hematuria type: gross UTI (urinary tract infection) N39.0 (1) Hematuria Hematuria type: gross Qualified Code(s): R31.0 - Gross hematuria
[2024-12-25 08:33] VITALS: RESP 16; TEMP 97.5; O2SAT 94
[2024-12-25] MEDS: ACETAMINOPHEN 325 MG TAB PO PRN (08:40)
[2024-12-25] MEDS: FLUTICASONE PROPIONATE NA SPR 16 GM BTL SCH (08:42)
[2024-12-25 09:27] LABS: Hematocrit (blood only) 40.2 % (42.0-52.0); Hemoglobin 13.7 g/dl (14.0-18.0); Mean Corpuscular Hemoglobin 31.4 pg (25.0-34.0); Mean Corpuscular Volume 92.2 fL (80.0-100.0); Platelet Count 175 K/uL (130-400); RDW Standard Deviation 41.2 fL (36.4-46.3); Red Blood Count 4.36 M/uL (4.70-6.10); White Blood Count 7.16 K/ul (4.8-10.8)
[2024-12-25 09:44] LABS: Anion Gap 7.0 (3-11); Blood Urea Nitrogen 20.0 mg/dl (6-23); Calcium 8.5 mg/dl (8.6-10.3); Carbon Dioxide 29.0 mmol/L (21-32); Chloride 105.0 mmol/L (98-107); Creatinine Clr Calc Pharmacy 66.9 ml/min; Glucose 101.0 mg/dl (70-99(Fasting)); Potassium 3.6 mmol/L (3.5-5.1); Sodium 141.0 mmol/L (136-145)
--- NOTE | 2024-12-25 10:18 | Urology Consultation ---
Date of Consultation December 25, 2024 Assessment & Plan (1) Hematuria: (2) UTI (urinary tract infection): (3) Urinary retention: Plan With his recent cystoscopy evaluating the bladder, I have low suspicion for underlying malignancy. Most likely cause of hematuria is infection, for which he is currently being treated. Since hematuria has cleared at this point, he should not require additional hand irrigation or continuous irrigation. He would like to have the catheter removed; I think this is reasonable. We will plan on voiding trial today. If he is able to void, I think he could be discharged home without a catheter. He can complete his course of antibiotics. He already has follow-up scheduled with the urology office. Urology will follow along History of Present Illness Reason for Consultation: Hematuria Attending Physician: Hunter Tejada MD History of Present Illness This is a 74-year-old male followed by urology for nephrolithiasis. He recently underwent ureteroscopy and laser lithotripsy with Dr. Montez. Postoperatively he developed urinary retention. His stent was subsequently removed and a Upton catheter was placed in the urology office. He successfully had a voiding trial, but then developed hematuria with clots and presented to an outside emergency department where a catheter was placed, irrigation was performed. This initially drained well, but then his catheter stopped draining on 12/24/2024, prompting presentation to the emergency department. Despite multiple attempts at flushing the catheter, it would not start draining. Catheter was upsized to allow irrigation. Labs reviewed: 12/25/2024: Hemoglobin 13.7, creatinine 0.92 urinalysis from 12/24/2024 with 2+ leukocyte esterase no bacteria seen, negative nitrites. He had a renal/bladder ultrasound performed on 12/24/2024. I independently reviewed these images. Both kidneys are draining well with no hydronephrosis. Bladder is decompressed around Upton catheter. I do not appreciate any significant blood clot within the lumen of the bladder. At the bedside this morning, he reports discomfort from the Upton catheter, but it has been draining well. Urine has cleared and there is no evidence of ongoing bleeding at this time. Allergies Allergy/AdvReac Type Severity Reaction Status Date / Time cat dander Allergy Mild watery eyes Verified 12/24/24 23:16 dog dander Allergy Mild watery eyes Verified 12/24/24 23:16 pollen extracts Allergy Mild ENVIRONMENTAL, Verified 12/24/24 23:16 watery eyes ciprofloxacin [From Cipro] AdvReac Intermediate Gastrointestinal Verified 12/24/24 23:16 Upset epinephrine AdvReac Intermediate Shakes Verified 12/24/24 23:16 when given at the dentist ANESTHETIC AdvReac Severe URINARY Uncoded 12/24/24 23:16 RETENTION Home Medications Medication Instructions Recorded Confirmed Type ascorbic acid (vitamin C) 500 mg 500 mg PO BID 01/05/19 12/24/24 History capsule diphenhydramine HCl 25 mg capsule 25 mg PO DAILY PRN Allergy Symptoms 01/05/19 12/24/24 History (Allergy (diphenhydramine)) ibuprofen 200 mg tablet 200 - 400 mg PO DIRECTED PRN 03/22/22 12/24/24 History Pain naphazoline 0.025 %-pheniramine 2 drp ophthalmic (eye) BID PRN 12/08/24 12/24/24 History 0.3 % eye drops allergies fluticasone propionate 50 2 spray intranasal DAILY 12/15/24 12/24/24 History mcg/actuation nasal spray,suspension (Flonase Allergy Relief) oxycodone 5 mg tablet 5 mg PO Q6H PRN pain #5 tabs 12/15/24 12/24/24 Rx cefdinir 300 mg capsule 300 mg PO BID 12/24/24 12/24/24 History omega-3 fatty acids 1,000 mg 1,000 mg PO BID 12/24/24 12/24/24 History capsule (Super [place]-3) Patient History Medical History Left ureteral calculus Hyperlipidemia Arthritis Prostate cancer currently being monitored / no treatment "Prostate, adenocarcinoma, ruslan 3 + 3, PSA 5.62, [id number], group I" History of asthma as a child>had an inhaler H/O bronchitis Surgical History Hx of endoscopic retrograde cholangiopancreatography (03/2022) Hx of cholecystectomy (03/2022) History of anesthesia reaction urinary retention>required upton catheter at discharge -- this occurred twice History of tooth extraction H/O colonoscopy History of hernia repair inguinal- 15-20 years ago H/O rotator cuff surgery RT ~ 10 years ago Family History Mother Hypertension Stroke Father Myocardial infarction History of anesthesia reaction father had severe anaphlaxsis when administered novocaine- pt. 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 Beliefs That Will Affect Care: None marital status: Current Living Situation: Spouse current occupational status: retired How many Children do You have: 3 Other Information That Helps Us Care for You: No Feels Safe at Home: Yes Safety Concerns: Feels Safe At This Time Childhood Exposure to Second-Hand Smoke: Yes Diet: regular caffeine: Yes during the past year weight has: remained stable Dental Care, Regularly: Yes Physical Activity Frequency: Daily Seatbelt Use: always Sunscreen Use: Yes Assistive Devices: Glasses Review of Systems Review of Systems: 10 point review of systems negative exce pt for otherwise indicated. Physical Exam Constitutional: well developed and well nourished; no acute distress Eyes: + anicteric sclerae; pupils not irregula r Respiratory: normal respiratory effort; no respiratory distress, does not use accessory muscles and no cough Cardiovascular: well perfused Gastrointestinal (Abdomen): Inspection/Auscultation: abdomen normal to inspection; abdomen not distended Musculoskeletal: Extremities: extremities normal to inspection Skin: normal turgor; no rashes and no lesions Neurologic: moves all extremities and awake Psychiatric: Orientation: alert and oriented x 3 Genitourinary: Upton catheter draining clear yellow urine Results & Data Vital Signs (Past 12 Hours) Vital Signs Temp Pulse Pulse Resp BP BP BP 12/25/24 08:31 36.4 C L 51 L 16 125/68 12/25/24 01:38 36.3 C L 51 L 18 147/77 H 12/25/24 01:20 36.3 C L 51 L 18 147/77 H 12/25/24 01:00 48 L 23 12/25/24 00:09 51 L 19 163/82 H 12/24/24 23:00 52 L 20 167/97 H Pulse Ox O2 Del Method 12/25/24 08:31 94 Room Air 12/25/24 01:38 99 Room Air 12/25/24 01:20 99 Room Air 12/25/24 01:00 97 12/25/24 00:09 96 Room Air 12/24/24 23:00 99 Room Air PG Care Time/CCT Total # of Minutes Spent Total Time Spent with Patient: Total time spent is greater than 50% in coordination of care (as documented) at patient's floor/unit and/or counseling patient: Coding Level of Care Code 61476 IN/OBS CONSULT LVL 4,60M Diagnoses Hematuria R31.0 Hematuria type: gross UTI (urinary tract infection) N39.0 Urinary retention R33.9 (1) Hematuria Hematuria type: gross Qualified Code(s): R31.0 - Gross hematuria
[2024-12-25 11:50] LABS: INR 0.9 (0.9-1.1); Partial Thromboplastin Time 29 Seconds (21-31); Prothrombin Time 10.2 Seconds (9.0-12.0)
[2024-12-25 15:11] VITALS: BP 163/82
--- NOTE | 2024-12-25 15:21 | Discharge Summary ---
Discharge Summary Date of Service December 25, 2024 Principal Dx & Hospital Course #1 = Principal Diagnosis (1) Hematuria: (2) UTI (urinary tract infection): Plan 74yo male presenting with hematuria, malfunction of Martin catheter. #Hematuria - H/H is stable and acceptable at 15.1 and 43.8, renal function intact. -20 [place] 3way catheter in place presently. Seems to be draining appropriately - yellow urine in the bag -Monitor output -Manually flush for decreased output -Bladder scan as needed -Tylenol PRN pain or fever -Oxycodone PRN moderate-severe pain -Urology consultation appreciated #UTI - patient recently diagnosed with UTI -Check urine culture -Ceftriaxone Admission HPI Per Admitting Provider Manolo Clements is a 74yo male presenting with hematuria. Patient recently found to have an obstructing renal stone. He was taken to the OR on 12/15/24 for cystoscopy, with removal of ureteral stone and left ureteral stent placement. He was seen in the Urology office on 12/16/24 and found to have an elevated post-void residual volume of 631mL so the stent was removed and a Martin. He was seen again in the office on 12/21/2024 and his Martin was removed. He was voiding well with no complaints until he went to [place] to visit his son. On the evening of 12/22 he started to have hematuria with passage of clots. He reports having severe urinary urgency - needing to urinate every 30 minutes and strain with painful urination and passing small volumes. These symptoms persisted for 4 hours and then he went to the ER. Patient was diagnosed with a UTI and given antibiotics. A Martin catheter was placed that reportedly clogged several times then a 3-way catheter was placed and patient placed on CBI overnight. Patient returned home with catheter in place. He continued to pass a small amount of blood and occasional clots. Today he noted that the flow from his catheter diminished significantly throughout the day which prompted him to come to the ER. Attempts made to irrigate patient's Martin were unsuccessful. A new 20F three way catheter was placed in the ER Patient presently complaining of some urethral discomfort ER Course: Oxycodone 5mg Ceftriaxone 2gm NSS 500mL Lidocaine jelly Discharge Plan Discharge Items Patient Disposition: Home - Self-Care Reason For Visit: HEMATURIA, CATHETER CLOTTING Discharge Diagnosis: Hematuria Condition on Discharge: Fair Activity: Resume your previous activity Non-emergency contact: Urologist Call non-emergency contact if: you have any medication questions and your symptoms worsen Follow-up/Referrals: Barber Pena DO [Primary Care Provider] - Phi Montez MD [Physician] - (Follow up hematuria) Diet: Regular Addtl Attending Provider Instructions: You were admitted to [facility] on December 25, 2024 due to catheter induced hematuria. This resolved with removal of your catheter. Please continue your previously prescribed cefdinir. Please follow up with urology as previously planned. No changes to your medications were made. Pending Studies at Discharge: Yes (Urine culture) Stand-Alone Forms: My [facility], Smoking Cessation Medications and DC Order Prescriptions: Continued diphenhydramine HCl [Allergy (diphenhydramine)] 25 mg capsule 25 mg PO DAILY PRN (Reason: Allergy Symptoms) ascorbic acid (vitamin C) 500 mg capsule 500 mg PO BID ibuprofen 200 mg Tablet 200 - 400 mg PO DIRECTED PRN (Reason: Pain) omega-3 fatty acids [Super [place]-3] 1,000 mg Capsule 1,000 mg PO BID cefdinir 300 mg capsule 300 mg PO BID Rx Instructions: 12/23/24 FOR 7 DAYS naphazoline-pheniramine 0.025-0.3 % Drops 2 drp OPHTHALMIC (EYE) BID PRN (Reason: allergies) fluticasone propionate [Flonase Allergy Relief] 50 mcg/actuation spray,suspension 2 spray intranasal DAILY Rx Instructions: administer into each nostril oxycodone 5 mg tablet 5 mg PO Q6H PRN (Reason: pain) Qty: 5 0RF Discharge Orders: Discharge Order (Routine); Ordered 12/25/24 Ordered By: Hunter Tejada Admission Data Admit Date/Time: 12/25/24 00:00 Attending Provider: Hunter Tejada Admit Provider: Gabrielle Dang Primary Care Provider: Barber Pena Other Providers: Rayshawn Bernal; Gabrielle Dang Other Interventions: Discharge Summary Assessment (RN) Last Done: 12/25/24 15:10 Hospital Stay Data Consultations 12/24/24 23:22 ED Decision to Admit Stat 12/25/24 00:00 Consult Urology Routine Diagnostic Imagining Performed 12/24/24 21:56 US Renal Bladder [US renal/blad retro comp] Stat Pending Results Patient Have Any Pending Studies at Discharge: Yes (Urine culture) Discharge Instructions Given to Patient (Per Discharging Provider) You were admitted to [facility] on December 25, 2024 due to catheter induced hematuria. This resolved with removal of your catheter. Please continue your previously prescribed cefdinir. Please follow up with urology as previously planned. No changes to your medications were made. Coding Diagnoses Hematuria R31.0 Hematuria type: gross UTI (urinary tract infection) N39.0
== END 2024-12-25 15:40 | disposition home or self-care (01) | DRG 699 ==
LOC: ED 19:23 → 3E 12-25 → SUATTDRO 12-25 → 3E 12-25 01:13